=== PATIENT | female | born 1960 ===

== ENCOUNTER 2021-04-18 10:21 | Outpatient (REF) | payer OTHER, SELFPAY ==
[2021-04-18 14:30] LABS: Anion Gap 10 (12-20); Blood Urea Nitrogen 9 mg/dL (9-16); Calcium 9.8 mg/dL (8.4-10.2); Carbon Dioxide 31 mmol/L (22-29); Chloride 106 mmol/L (96-108); Estimated Glomerular Filt Rate > 60; Glucose Random 88 mg/dL (60-115); Potassium 4.3 mmol/L (3.3-5.1); Sodium 143 mmol/L (135-145)
[2021-04-18 14:51] LABS: TSH reflex Free T4 3.16 uIU/mL (0.32-4.0)
== END 2021-04-18 10:22 | disposition home or self-care (01) ==
LOC: HO.WFDLDS 10:21
PROVIDERS: PCP Family Medicine; Visit Provider Family Medicine
DX: Z00.00 Encounter for general adult medical examination without abnormal findings (principal); F41.9 Anxiety disorder, unspecified; F32.9 Major depressive disorder, single episode, unspecified; E03.9 Hypothyroidism, unspecified
CPT/HCPCS: 36415; 80048; 84443

== ENCOUNTER 2021-11-06 18:52 | Emergency (ER) | payer OTHER, SELFPAY ==
--- NOTE | ~2021-11-06 | XR_ITS ---
EXAMINATION: XR FOOT, RIGHT CLINICAL INFORMATION: Fall. Pain. COMPARISON: None TECHNIQUE: 2 views of the right foot. FINDINGS: The bones and soft tissues are normal. No fracture. Alignment is anatomic. Joint spaces are maintained. Small plantar calcaneal spur. XR/XR foot RT 2V IMPRESSION: No acute abnormality of the foot.
--- NOTE | ~2021-11-06 | XR_ITS ---
EXAMINATION: XR KNEE, RIGHT CLINICAL INFORMATION: Right knee pain. Fall. COMPARISON: None TECHNIQUE: Four views of the right knee. FINDINGS: There is mild loss of lateral and patellofemoral compartment joint space with moderate suprapatellar joint effusion. There is subtle lucency along the lateral proximal tibia extending to the lateral tibial plateau suggestive of a nondisplaced fracture. The soft tissues are mildly prominent. XR/XR knee RT 4V IMPRESSION: Nondisplaced lateral proximal tibial fracture with extension to the tibial plateau. Moderate suprapatellar joint effusion.
[2021-11-06 19:15] VITALS: BP 129/82; PULSE 81; RESP 18; TEMP 36.2; O2SAT 98; BMI 32.9
[2021-11-06] MEDS: HYDROmorphone HCl 2 MG/ML VIAL IM (22:10)
[2021-11-06] MEDS: Ondansetron ODT 4 MG TAB.RAPDIS TRANSLINGU (22:10)
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
[2021-11-06 22:33] VITALS: BP 159/82; PULSE 71; RESP 16; TEMP 37.1; O2SAT 97
== END 2021-11-06 22:47 | disposition home or self-care (01) ==
PROVIDERS: Emergency Provider Emergency Medicine; PCP Family Medicine
DX: S82.144A Nondisplaced bicondylar fracture of right tibia, initial encounter for closed fracture (principal); V18.0XXA Pedal cycle driver injured in noncollision transport accident in nontraffic accident, initial encounter; Y93.55 Activity, bike riding; Y92.414 Local residential or business street as the place of occurrence of the external cause; Y99.8 Other external cause status
CPT/HCPCS: 73564; 73620; 96372; 99283; 99284; J1170

== ENCOUNTER → 2021-11-09 09:24 | Outpatient (BNVA) | payer OTHER, SELFPAY | PROVIDERS: PCP Family Medicine; Visit Provider Physician Assistant | DX: Z13.89 Encounter for screening for other disorder (principal) ==

== ENCOUNTER 2021-11-10 08:51 | Outpatient (REF) | payer OTHER, SELFPAY ==
--- NOTE | ~2021-11-10 | CT_ITS ---
EXAMINATION: CT KNEE WITHOUT CONTRAST, RIGHT CLINICAL INFORMATION: Proximal tibial fracture. COMPARISON: Right knee radiographs dated 11/06/2021. TECHNIQUE: Contiguous axial CT images of the right knee were obtained without contrast. Sagittal and coronal reformats were provided and reviewed. This CT examination was performed using dose optimization techniques as appropriate, variously including the following: *Automated exposure control *Adjustment of mA and/or kV according to patient size (this includes techniques or standardized protocols for targeted exams where dose is matched to indication/reason for exam; i.e. extremities or head) *Use of iterative reconstruction technique DLP: 163 mGy-cm FINDINGS: There is a comminuted lateral tibial plateau fracture with a dominant oblique fracture line anteriorly which contacts the anterior and lateral cortical surface. Additionally, there is a comminuted, depressed articular surface component to the fracture measuring up to 2.6 cm in AP dimension and 2.5 cm in ML dimension with approximately 0.5 cm of cortical depression. Findings are consistent with a type II tibial plateau fracture as per Schatzker's classification system. No additional fracture. No dislocation. No joint space narrowing or marginal osteophytes. No concerning lytic or blastic osseous lesion. Small lipohemarthrosis. No abnormal soft tissue mass or fluid collection. The visualized muscles and tendons are grossly intact, however, evaluation is limited on CT examination. CT/CT knee RT wo con IMPRESSION: Mildly comminuted and depressed fracture through the lateral tibial plateau with a dominant oblique component contacting the anterior and lateral cortical surface as well as an articular surface component which demonstrates 0.5 cm of cortical depression. Findings are consistent with a type II tibial plateau fracture as per Schatzker's classification system. Small lipohemarthrosis.
== END 2021-11-10 08:52 | disposition home or self-care (01) ==
LOC: HO.CT 08:51
PROVIDERS: PCP Family Medicine; Visit Provider Physician Assistant
DX: S82.143A Displaced bicondylar fracture of unspecified tibia, initial encounter for closed fracture (principal)
CPT/HCPCS: 73700

== ENCOUNTER → 2021-11-14 15:15 | Outpatient (BNVA) | payer OTHER, SELFPAY | PROVIDERS: PCP Family Medicine; Visit Provider Physician Assistant | DX: Z13.89 Encounter for screening for other disorder (principal) ==

== ENCOUNTER 2021-11-15 09:57 | Inpatient (IN) | payer OTHER, SELFPAY ==
[2021-11-15] VITALS (18 sets, daily range): BP systolic 121–165; BP diastolic 65–90; PULSE 55–91; RESP 16–20; TEMP 36.2–36.8; O2SAT 95–98; BMI 34.0
--- NOTE | ~2021-11-15 | FL_ITS ---
EXAMINATION: XR FLUOROSCOPY WITH IMAGES CLINICAL INFORMATION: Tibial plateau fracture, postop. COMPARISON: Radiographs right knee 11/06/2021, CT right knee 11/10/2021 TECHNIQUE: Fluoroscopy performed by Dr. Marc Velazquez. Fluoroscopy time: 1 minute. DAP: 0.122 mGycm2 Images: 2 FINDINGS: Lateral tibial plateau fracture is reduced with lateral plate and multiple screws. There may be cement in the lateral tibial plateau on the AP view for additional support. Fracture fragments are in near-anatomic alignment. Hardware is intact. No destructive process. FL/FL guidance in OR IMPRESSION: Status post reduction lateral tibial plateau fracture in near-anatomic alignment. Hardware intact.
[2021-11-15] MEDS: ceFAZolin Sodium/Dextrose,Iso 2 GM/50 ML PIGGYBACK IV ×2 (06:44→19:05)
--- NOTE | 2021-11-15 07:23 | HO.ANESPROP2 ---
HPI - Anesthesia Eval Consult details Narrative: 61 F for tibial orif , right PMFSH Active Problems Active Problems: All Active Problems (Updated 11/09/21 @ 10:00 by Christy Blel) Fracture of right tibial plateau (Acute) Past Medical History Medical History Anxiety and depression Heartburn Hypothyroidism (acquired) Family History Family history of problems with anesthesia: No Surgical History History of Problems with Anesthesia: No Social History Social History Household Members: Family Housing: House Do you presently have visiting nurse or other home services: No Patient Tobacco Use Status: Former Tobacco user Quit Date: 1996 e-Cigarette/Vaping Use: Never Used Use of substances other than those prescribed or required for medical reasons: No Are you DNR?: No Advance Directives: No Advance Directives Information Provided: Yes Do you have thoughts of harming others: None Do you have a plan to hurt others: No Plan Recently lost weight without trying: No service: No Current occupational status: employed Meds Allergies Allergy/AdvReac Type Severity Reaction Status Date / Time Antihistamine Allergy Severe severe Uncoded 11/09/21 09:41 palpitations Home Medications Medication Instructions Recorded Confirmed Last Taken Type oxycodone 5 mg tablet 5 mg PO Q6H 11/15/21 11/15/21 11/14/21 History Exam Exam Date and Time: November 15, 2021 0723 Height,Weight and Vital Signs: Height 5 ft 1 in Weight 81.647 kg Last Vital Signs Temp 97.5 F 11/15/21 06:27 Pulse 55 11/15/21 06:27 Resp 16 11/15/21 06:27 BP 143/74 H 11/15/21 06:27 Pulse Ox 96 11/15/21 06:27 Airway Mallampati Class: III TM Dist: >3cm Neck ROM: Full Loose/Missing/Broken Teeth: Yes (Implant , poor dentition ) Heart: S1, S2 Lungs: b/l breath sounds Assessment and Plan Assessment Anesthesia Assessment: Anesthesia Plan Discussed and Chart Reviewed Final Anesthetic Review Family History of Problems with Anesthesia: No History of Problems with Anesthesia: No NPO: Yes ASA Class: II Final Preanesthetic Review: Meds/Allgs Chart Reviewed, Consent Obtained/Reviewed and Anes Risks/Benef Reviewed Patient Risk: Intermediate Procedure Risk: Intermediate Anesthetic Plan Anesthetic Plan: GA Disposition: Inp. Admit - Standard Bed
--- NOTE | 2021-11-15 07:47 | MHC.SHP ---
Pre-Procedural Eval Section A Date of Service: 11/15/21 The patient is an INPATIENT: No Changes since office visit: Yes Patient answered all questions; No Cold of Flu in the past 2 weeks, No New Medical Problems and No Changes in Medication The History & Physical has been completed within 30 days and I have reviewed it.: Yes Section B Chief Complaint: Displaced bicondylar fracture of right tibia, Allergies: Allergies Allergy/AdvReac Type Severity Reaction Status Date / Time Antihistamine Allergy Severe severe Uncoded 11/09/21 09:41 palpitations Plan I have reviewed the history and physical and performed a pertinent physical examination on my patient. No changes have occurred unless specified.
--- NOTE | 2021-11-15 10:01 | PM.OP ---
Brief Operative Note Date of Service: 11/15/21 Pre-op diagnosis: Right tibial plateau fracture Post-op diagnosis: same Procedure: ORIF right tibial plateau fracture Implants: Jabari tibial plateua locking plate Surgeon: Marc Velazquez MD Anesthesia: GETA and local Was an Counseling Case Manager used for this Procedure?: Yes Counseling Case Manager: Michelle Finnegan Estimated blood loss (mL): 75 IV fluids (mL): 1,100 Pathology: none sent Condition: stable Disposition: PACU
--- NOTE | 2021-11-15 10:24 | W.PM.OPN ---
Operative Note Operative Note Date of Service: 11/15/21 Narrative: Date of Service:?11/15/21 Pre-op diagnosis: Right tibial plateau fracture Post-op diagnosis:?same Procedure: ORIF right tibial plateau fracture Implants: Jabari tibial plateua locking plate Surgeon: Marc Velazquez MD Anesthesia:?GETA and local Was an Business Liaison Manager used for this Procedure?:?Yes Business Liaison Manager:?Michelle Finnegan Estimated blood loss (mL):?75 IV fluids (mL):?1,100 Pathology:?none sent Condition:?stable Disposition:?PACU Procedure in detail: Patient was brought to the operating room and placed supine on the surgical table. She was prepped and draped in standard sterile fashion and a time out was called to identify proper site, proper procedure and IV antibiotics per weight were administered. A began by making an S shaped incision over the lateral joint line and. The iliotibial band and Gerdy's tubercle were identified. A fascial incision was made in line with the skin incision and a periosteal elevator was used to elevate the IT band off of Gerdy's tubercle. I then split the anterior compartment musculature down to the anterolateral aspect of the tibial shaft. Proximally I incised the coronal ligaments and elevated the lateral meniscus proximally using FiberWire retraction sutures. I examined the joint. There was a split depression of the anterolateral tibial plateau. Loose tissue was debrided from this and cortical with window was made in the tibial shaft. A tamp was placed through the cortical window and the joint line was elevated under both direct visualization and radiographic visualization. Once I was satisfied that the joint line had been elevated a small sarmad incision was made over the medial tibial plateau and a C-clamp was placed to reduce the split fracture. Once I was satisfied with the joint alignment I placed 5 mm of HydroSet through the cortical window tamping up the articular surface. Once the Hydrocet was dry the cortical piece was replaced and I turned my attention to application of the tibial plateau hardware. A 2 distal hole lateral locking plate was applied over the lateral tibial plateau. Direct visualization was used to align the plate as well as radiographic visualization. Once I was satisfied with the position of the plate 3 locking screws were placed just distal to the articular surface from lateral to medial. An additional 4th locking screw was placed under these and then a locking raft screw was placed. I then placed 2 nonlocking screws through the distal plate. Biplanar radiographs were used to confirm plate position and fracture reduction. I was satisfied with both of these. All instrumentation was then removed. I then repaired the coronal ligaments and the lateral meniscus. The iliotibial band was closed with 0 Vicryl and subcuticular layer was closed with 2-0 Vicryl. [place] were used for the skin. I injected 30 mL of 0.25% Marcaine. Patient was placed in sterile dressing and a hinged knee brace. She was extubated brought to recovery room stable condition. There were no known complications.
[2021-11-15] MEDS: fentaNYL citrate/PF 100 MCG/2 ML VIAL 25 MCG IVPUSH ×2 (11:25→11:40)
[2021-11-15] MEDS: oxyCODONE HCl Immed Release 5 MG TABLET PO (11:31)
[2021-11-15] MEDS: HYDROmorphone HCl 0.5 MG/0.5 ML SYRINGE 0.25 MG IVPUSH (11:50)
--- NOTE | 2021-11-15 12:11 | PHA.MEDREC ---
Pharmacy Consult ? Medication Reconciliation Pharmacy has completed the medication reconciliation. Patient reports taking oxycodone 5 mg Q6H around the clock instead of PRN Tigist Choi, TrumanD
[2021-11-15] MEDS: HYDROmorphone HCl 1 MG/ML SYRINGE 0.25 MG IVPUSH ×3 (13:14→22:21)
[2021-11-15] MEDS: Enoxaparin Sodium 40 MG/0.4 ML SYRINGE SUBCUT (13:15)
[2021-11-15] MEDS: Lactated Ringers 1,000 ML 100 ML IVCONT ×2 (13:38→21:27)
[2021-11-15] MEDS: oxyCODONE HCl Immed Release 5 MG TABLET 10 MG PO ×2 (16:11→20:37)
[2021-11-15] MEDS: ondansetron HCL 4 MG/2 ML VIAL IVPUSH (19:05)
[2021-11-15] MEDS: oxyCODONE HCl ER 10 MG TAB.ER.12H PO (20:36)
[2021-11-15] MEDS: Celecoxib 200 MG CAPSULE PO (20:38)
[2021-11-15] MEDS: Acetaminophen 325 MG TABLET 650 MG PO (20:38)
[2021-11-15] MEDS: Docusate Sodium 100 MG CAPSULE PO (21:32)
[2021-11-15] MEDS: 0.9 % Sodium Chloride Flush 3 ML SYRINGE IVFLUSH (23:45)
[2021-11-16] MEDS: HYDROmorphone HCl 1 MG/ML SYRINGE 0.25 MG IVPUSH ×3 (03:32→12:47)
[2021-11-16 03:45] VITALS: BP 127/66; PULSE 77; RESP 18; TEMP 36.4; O2SAT 97
[2021-11-16] MEDS: Lactated Ringers 1,000 ML 100 ML IVCONT (06:15)
[2021-11-16 06:26] LABS: MANUAL DIFF FLAG NO
[2021-11-16 06:29] LABS: Basophils Percent Auto 0.1 % (0-2); Eosinophils Percent Auto 0.1 % (0-4); Hematocrit 33.7 % (37.0-47.0); Imm Gran Abs Auto 0.05 X10*3/uL (0.00-0.03); Imm Gran Pct Auto 0.4 % (0.0-0.4); Lymphocytes Absolute Auto 1.4 X10*3/uL (1.2-4.9); Mean Corpuscular HGB Conc 32.6 g/dl (31.0-35.0); Mean Corpuscular Hemoglobin 29.3 pg (27.0-33.0); Mean Corpuscular Volume 89.6 fL (80.0-98.0); Mean Platelet Volume 9.4 fL (9.4-12.3); Neutrophils Absolute Auto 9.5 x10*3/uL (2.0-8.3); Neutrophils Percent Auto 79.4 % (45-73); Platelet Count 224 X10*3/uL (160-400); Red Blood Count 3.76 X10*6/uL (4.20-5.50); Red Cell Distribution Width 12.5 % (11.0-16.0); White Blood Count 11.9 X10*3/uL (4.8-10.8)
[2021-11-16 06:52] LABS: Anion Gap 13 (12-20); Blood Urea Nitrogen 8 mg/dL (9-16); Carbon Dioxide 28 mmol/L (22-29); Chloride 105 mmol/L (96-108); Creatinine Clr Calc Pharmacy 80.7; Estimated Glomerular Filt Rate > 60; Glucose Fasting 110 mg/dL (60-99); Potassium 4.5 mmol/L (3.3-5.1); Sodium 141 mmol/L (135-145)
--- NOTE | 2021-11-16 07:03 | HO.POSTANES ---
Post Anesthesia Evaluation Post Anesthesia Evaluation Vital Signs: Vital Signs Temp Pulse Resp BP Pulse Ox 11/16/21 03:45 97.5 F 77 18 127/66 97 11/15/21 23:20 98.3 F 73 18 139/72 97 11/15/21 22:23 66 20 122/69 11/15/21 20:26 98.0 F 73 18 143/73 H 95 11/15/21 20:00 98.0 F 73 18 143/73 H 95 Anesthesia: General Mental Status: Awake Pain Control: Satisfactory (pain 7/10) Nausea/Vomiting: Mild Hydration: Adequate Anesthesia-Related Issues: No Anes. Related Issues
[2021-11-16 08:00] VITALS: BP 136/80; PULSE 70; RESP 17; TEMP 36.7; O2SAT 96
[2021-11-16] MEDS: 0.9 % Sodium Chloride Flush 3 ML SYRINGE IVFLUSH (08:35)
[2021-11-16] MEDS: Docusate Sodium 100 MG CAPSULE PO (08:35)
[2021-11-16] MEDS: oxyCODONE HCl ER 10 MG TAB.ER.12H PO (08:35)
[2021-11-16] MEDS: Celecoxib 200 MG CAPSULE PO (08:36)
--- NOTE | 2021-11-16 08:59 | P.DS_ITS ---
DS: Providers Provider Date of Service: 11/16/21 Date of admission: 11/15/21 09:57 Primary care physician: Ceasar Odell MD DS: Summary Hospital Course Hospital Course: The patient underwent a successful ORIF of the right tibal plateau, was transferred to PACU and then to the floor to recover. During their stay, their vitals were stable, afebrile at 98.0. Labs were unremarkable, H/H 11.0/33.7. POD 1 shewas started on lovenox for DVT ppx, they also received services twice a day. The plan was to be d/c home with out patient PT Time Spent with Patient Time attestation: Total time spent providing and/or coordinating discharge services: Discharge coordination time: Less than 30 minutes Quality: Safe Use of Opioids Does Pt have an Active Cancer Diagnosis on the Problem List?: No Quality: Stroke Does the patient have a stroke diagnosis?: No Physical Exam Vital Signs: Vital Signs: Last Vital Signs Temp 98.0 F 11/16/21 08:00 Pulse 70 11/16/21 08:00 Resp 17 11/16/21 08:00 BP 136/80 11/16/21 08:00 Pulse Ox 96 11/16/21 08:00 BMI result Body Mass Index 34.0 Const: General: cooperative, healthy appearing and no acute distress Resp: Effort & Inspection: normal respiratory effort and able to speak in complete sentences Cardio: Rate: regular rate Peripheral pulses: Peripheral pulses 2+ throughout GI: Palpation (GI): Soft to palpation Skin: General skin exam: no rashes or lesions noted Extrem: Other: incision clean dry and intact. Lexi intact. No erythema or joint effusion. Calf supple nontender. Neurovascularly intact. DS: Data Data Completed and Pending Labs on day of discharge: Laboratory Results - last 24 hr 11/16/21 11/16/21 05:38 05:38 WBC 11.9 H RBC 3.76 L Hgb 11.0 L Hct 33.7 L MCV 89.6 MCH 29.3 MCHC 32.6 RDW 12.5 Plt Count 224 MPV 9.4 Immature Gran % (Auto) 0.4 Neut % (Auto) 79.4 H Lymph % (Auto) 12.0 L Harrison % (Auto) 8.0 Eos % (Auto) 0.1 Baso % (Auto) 0.1 Lymph # (Auto) 1.4 Harrison # (Auto) 1.0 Eos # (Auto) 0.0 Baso # (Auto) 0.0 Abs Immat Gran (auto) 0.05 H Absolute Neuts (auto) 9.5 H Absolute Nucleated RBC 0.000 Nucleated RBC % (auto) 0.0 Sodium 141 Potassium 4.5 Chloride 105 Carbon Dioxide 28 Anion Gap 13 BUN 8 L Creatinine 0.70 Estim Creat Clear Calc 80.7 Estimated GFR > 60 Fasting Glucose 110 H Calcium 9.0 D Discharge Plan Discharge Patient Disposition: Home, Self-Care Discharge Diagnosis: s/p ORIF right tibal plateau Referrals: Michelle Finnegan PA-C [Physician Geothermal Powerplant Supervisor] - 2 Weeks (11/27/21 08:30 [facility] Michelle Finnegan PA-C) Discharge Medications: New docusate sodium 100 mg Capsule 100 mg PO BID 14 Days Qty: 28 0RF oxycodone 10 mg tablet 10 mg PO Q4H PRN (Reason: Pain, Moderate (Pain Scale 4-6) 7 Days Qty: 42 0RF acetaminophen 325 mg Tablet 650 mg PO Q6H PRN (Reason: Pain, Mild (Pain Scale 1-3)) 30 Days Qty: 240 0RF enoxaparin 40 mg/0.4 mL Syringe 40 mg subcut Q24H 42 Days Qty: 16.8 0RF ondansetron HCl 4 mg tablet 4 mg PO Q6-8H PRN (Reason: nausea and vomiting) 14 Days Qty: 56 0RF Continued citalopram 40 mg tablet 40 mg PO DAILY Qty: 90 2RF levothyroxine 75 mcg tablet 75 mcg PO QAM Qty: 90 2RF (DME) walker [facility] [place] See Rx Instructions .ROUTE .MEDSUPPLY Qty: 1 0RF Rx Instructions: Folding front wheeled walker Discontinued oxycodone 5 mg tablet 5 mg PO Q6H 0RF Rx Instructions: Partial fill okay Discharge Orders: Discharge Order (Routine); Ordered 11/16/21 Ordered By: Richard Mueller Diet: regular diet Activity on Discharge: Use cane or walker Stand Alone Forms: Patient Portal Discharge page Care Plan Goals: Restore function of joint Health Concerns: none Plan of Treatment: Physical Therapy Pain management DVT prophylaxis Assessment: * NWB x6 weeks * NWB ROM as tolerated * Knee immobilizer intact on at all times when walking-may remove with NWB ROM exercises * Keep dressing clean , dry and intact. * Continue anticoagulant-lovenox once a day x 6 weeks * Follow up with orthopedics in 2 weeks * * Physical Therapy to begin next week * Arabella SCHROEDER on 11/24 at 10am. Patient Instructions: Enoxaparin (By injection) Discharge Date/Time: 11/16/21 14:18
[2021-11-16 10:50] VITALS: BP 136/80; PULSE 70; O2SAT 96
--- NOTE | 2021-11-16 11:05 | MHC.CM.PN ---
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
[2021-11-16] MEDS: oxyCODONE HCl Immed Release 5 MG TABLET 10 MG PO (11:46)
[2021-11-16] MEDS: Enoxaparin Sodium 40 MG/0.4 ML SYRINGE SUBCUT (11:47)
== END 2021-11-16 14:18 | disposition home or self-care (01) | DRG 494 ==
LOC: HO.SSSA 10:11 → HO.S3 11:48
PROVIDERS: Physician Assistant; Admitting Provider Orthopaedic Surgery; PCP Family Medicine; Visit Provider Orthopaedic Surgery
PROC: 0QSG04Z Reposition Right Tibia with Internal Fixation Device, Open Approach (ICD-10-PCS; principal; 2021-11-15 07:30)
DX: S82.141A Displaced bicondylar fracture of right tibia, initial encounter for closed fracture (principal); V18.0XXA Pedal cycle driver injured in noncollision transport accident in nontraffic accident, initial encounter; Z87.891 Personal history of nicotine dependence; Z88.8 Allergy status to other drugs, medicaments and biological substances; Z79.890 Hormone replacement therapy; Z79.899 Other long term (current) drug therapy
CPT/HCPCS: 36415; 80048; 85025; 97116; 97161; 97165; C1713; J0690; J1100; J1170; J1650; J2250; J2405; J3010

== ENCOUNTER 2021-11-30 07:15 | Outpatient (REF) | payer OTHER, SELFPAY ==
--- NOTE | ~2021-11-30 | XR_ITS ---
EXAMINATION: XR KNEE, RIGHT CLINICAL INFORMATION: Pain in unspecified knee. COMPARISON: Right knee done on 11/06/2021 and fluoroscopic assistance provided at the time of ORIF done on 11/15/2021. TECHNIQUE: Two views of the right knee. FINDINGS: Postsurgical changes of ORIF is noted at the site of the prior fracture involving the lateral tibial plateau showing intact hardware and satisfactory alignment. No new abnormalities. XR/XR knee RT 2V IMPRESSION: Postoperative changes of ORIF at the site of prior fracture involving the lateral tibial plateau showing intact hardware and satisfactory alignment.
== END 2021-11-30 07:16 | disposition home or self-care (01) ==
LOC: HO.HOSX 07:15
PROVIDERS: Visit Provider Physician Assistant
DX: M25.569 Pain in unspecified knee (principal)
CPT/HCPCS: 73560

== ENCOUNTER 2021-12-06 09:58 | Outpatient (REF) | payer OTHER, SELFPAY ==
[2021-12-06 11:02] LABS: Alanine Aminotransferase 33 U/L (0-31); Albumin Level 4.5 g/dL (3.5-5.0); Alkaline Phosphatase 128 U/L (39-117); Anion Gap 12 (12-20); Aspartate Amino Transferase 27 U/L (5-31); Bilirubin Total 0.6 mg/dL (0.0-1.0); Blood Urea Nitrogen 6 mg/dL (9-16); Calcium 9.7 mg/dL (8.4-10.2); Carbon Dioxide 29 mmol/L (22-29); Chloride 104 mmol/L (96-108); Estimated Glomerular Filt Rate > 60; Glucose Random 105 mg/dL (60-115); Potassium 3.6 mmol/L (3.3-5.1); Sodium 141 mmol/L (135-145); Total Protein 7.4 g/dL (6.5-8.0)
[2021-12-06 11:25] LABS: TSH reflex Free T4 1.78 uIU/mL (0.32-4.0)
== END 2021-12-06 09:59 | disposition home or self-care (01) ==
LOC: HO.WFDLDS 09:58
PROVIDERS: Visit Provider Family Medicine
DX: Z00.00 Encounter for general adult medical examination without abnormal findings (principal); F41.9 Anxiety disorder, unspecified; R11.0 Nausea; R63.0 Anorexia; F32.9 Major depressive disorder, single episode, unspecified
CPT/HCPCS: 36415; 80053; 84443

== ENCOUNTER 2022-01-01 12:19 | Outpatient (REF) | payer OTHER, SELFPAY ==
--- NOTE | ~2022-01-01 | XR_ITS ---
EXAMINATION: XR KNEE, RIGHT CLINICAL INFORMATION: Pain. COMPARISON: 11/30/2021. 11/06/2021. TECHNIQUE: Two views of the right knee. FINDINGS: Fixation plate overlying the lateral proximal tibia with multiple traversing screws. No evidence of hardware failure. A lateral tibial plateau fracture demonstrates interval osseous bridging when compared to October and it is in near-anatomic alignment. No new injuries. No joint effusion. XR/XR knee RT 2V IMPRESSION: Intact tibial hardware fixating a healing tibial plateau fracture in near-anatomic alignment.
== END 2022-01-01 12:20 | disposition home or self-care (01) ==
LOC: HO.HOSX 12:19
PROVIDERS: Visit Provider Physician Assistant
DX: M25.561 Pain in right knee (principal)
CPT/HCPCS: 73560

== ENCOUNTER 2022-02-01 09:01 | Outpatient (REF) | payer OTHER, SELFPAY ==
[2022-02-01 11:26] LABS: MANUAL DIFF FLAG NO
[2022-02-01 11:28] LABS: Basophils Absolute Auto 0.1 X10*3/uL (0.0-0.2); Basophils Percent Auto 0.8 % (0-2); Eosinophils Absolute Auto 0.3 X10*3/uL (0.0-0.4); Eosinophils Percent Auto 4.4 % (0-4); Hematocrit 42.5 % (37.0-47.0); Hemoglobin 13.7 g/dl (12.0-16.0); Imm Gran Abs Auto 0.02 X10*3/uL (0.00-0.03); Imm Gran Pct Auto 0.3 % (0.0-0.4); Immature Retic Fraction 8.5 % (3.0-15.9); Lymphocytes Absolute Auto 1.8 X10*3/uL (1.2-4.9); Lymphocytes Percent Auto 23.9 % (20-40); Mean Corpuscular HGB Conc 32.2 g/dl (31.0-35.0); Mean Corpuscular Hemoglobin 28.8 pg (27.0-33.0); Mean Corpuscular Volume 89.5 fL (80.0-98.0); Mean Platelet Volume 9.3 fL (9.4-12.3); Monocytes Absolute Auto 0.5 X10*3/uL (0.1-1.2); Monocytes Percent Auto 7.2 % (2-11); Neutrophils Absolute Auto 4.8 x10*3/uL (2.0-8.3); Neutrophils Percent Auto 63.4 % (45-73); Platelet Count 284 X10*3/uL (160-400); Red Blood Count 4.75 X10*6/uL (4.20-5.50); Retic HGB Equivalent 33.3 pg (30.0-35.0); Reticulocyte Percent 1.4 % (0.5-1.8); Reticulocytes Absolute 0.068 X10*6/uL (0.026-0.095); White Blood Count 7.5 X10*3/uL (4.8-10.8)
[2022-02-01 11:45] LABS: Alanine Aminotransferase 22 U/L (0-31); Albumin Level 4.5 g/dL (3.5-5.0); Alkaline Phosphatase 117 U/L (39-117); Anion Gap 14 (12-20); Aspartate Amino Transferase 20 U/L (5-31); Bilirubin Total 0.4 mg/dL (0.0-1.0); Blood Urea Nitrogen 11 mg/dL (9-16); Carbon Dioxide 31 mmol/L (22-29); Chloride 102 mmol/L (96-108); Cholesterol 227 mg/dL; Estimated Glomerular Filt Rate > 60; Glucose Fasting 96 mg/dL (60-99); HDL Cholesterol 43 mg/dL; Iron 82 mcg/dL (30-160); LDL Cholesterol Calculated 152 mg/dl; Percent Iron Saturation 25 % (15-50); Potassium 4.4 mmol/L (3.3-5.1); Sodium 143 mmol/L (135-145); Total Iron Binding Capacity 332 mcg/dL (228-428); Total Protein 7.5 g/dL (6.5-8.0); Triglycerides 163 mg/dL; Unsaturated Iron Binding 250 ug/dL
[2022-02-01 12:09] LABS: Ferritin 137 ng/mL (10-250); TSH reflex Free T4 3.82 uIU/mL (0.32-4.0)
[2022-02-01 12:52] LABS: Folate 14.7 ng/mL (> or = 4.0); Vitamin B12 657 pg/mL (200-900)
== END 2022-02-01 09:02 | disposition home or self-care (01) ==
LOC: HO.HMGCLDS 09:01
PROVIDERS: PCP Family Medicine; Visit Provider Family Medicine
DX: Z00.00 Encounter for general adult medical examination without abnormal findings (principal); D64.9 Anemia, unspecified; E53.8 Deficiency of other specified B group vitamins; Z13.220 Encounter for screening for lipoid disorders; Z13.29 Encounter for screening for other suspected endocrine disorder
CPT/HCPCS: 36415; 80053; 80061; 82607; 82728; 82746; 83540; 84443; 85025; 85045

== ENCOUNTER 2022-02-15 15:10 | Outpatient (REF) | payer OTHER, SELFPAY ==
--- NOTE | ~2022-02-15 | XR_ITS ---
EXAMINATION: KNEE X-RAY CLINICAL INFORMATION: Pain COMPARISON: Previous x-rays most recent December 2021 TECHNIQUE: Standing AP view of both knees and lateral and sunrise view of the right knee FINDINGS: Right: There is a plate and screws transfixing the lateral tibial plateau fracture. Orthopedic hardware appears unchanged. Alignment is anatomic. The bones are osteopenic. The joint spaces are normal. There is a small right knee joint effusion. Standing AP view of the left knee is unremarkable. XR/XR knee standing BI IMPRESSION: ORIF of right lateral tibial plateau fracture.
--- NOTE | ~2022-02-15 | XR_ITS ---
EXAMINATION: KNEE X-RAY CLINICAL INFORMATION: Pain COMPARISON: Previous x-rays most recent December 2021 TECHNIQUE: Standing AP view of both knees and lateral and sunrise view of the right knee FINDINGS: Right: There is a plate and screws transfixing the lateral tibial plateau fracture. Orthopedic hardware appears unchanged. Alignment is anatomic. The bones are osteopenic. The joint spaces are normal. There is a small right knee joint effusion. Standing AP view of the left knee is unremarkable. XR/XR knee RT 2V IMPRESSION: ORIF of right lateral tibial plateau fracture.
== END 2022-02-15 15:11 | disposition home or self-care (01) ==
LOC: HO.HOSX 15:10
PROVIDERS: Visit Provider Physician Assistant
DX: M25.561 Pain in right knee (principal)
CPT/HCPCS: 73560; 73565

== ENCOUNTER 2022-04-05 | Outpatient (REF) | payer OTHER, SELFPAY ==
--- NOTE | ~2022-04-05 | XR_ITS ---
EXAMINATION: XR BILATERAL KNEE AP STANDING. LATERAL AND SUNRISE VIEWS OF THE RIGHT KNEE. CLINICAL INFORMATION: Pain in unspecified knee COMPARISON: 02/15/2022 TECHNIQUE: AP bilateral standing view of both knees, lateral view of the right knee, and sunrise view of the right knee were obtained. FINDINGS: Right knee: Lateral side plate and screw fixation of previously seen lateral tibial plateau fracture. No offset of the articular surface seen. Mild medial and lateral compartment joint space narrowing. Small suprapatellar joint effusion. Normal patellar alignment. Left knee: Mild medial compartment joint space narrowing. Lateral compartment joint space maintained. No fracture or dislocation. XR/XR knee standing BI IMPRESSION: Status post ORIF right lateral tibial plateau fracture. Alignment is unchanged. Small suprapatellar joint effusion persists.
--- NOTE | ~2022-04-05 | XR_ITS ---
EXAMINATION: XR BILATERAL KNEE AP STANDING. LATERAL AND SUNRISE VIEWS OF THE RIGHT KNEE. CLINICAL INFORMATION: Pain in unspecified knee COMPARISON: 02/15/2022 TECHNIQUE: AP bilateral standing view of both knees, lateral view of the right knee, and sunrise view of the right knee were obtained. FINDINGS: Right knee: Lateral side plate and screw fixation of previously seen lateral tibial plateau fracture. No offset of the articular surface seen. Mild medial and lateral compartment joint space narrowing. Small suprapatellar joint effusion. Normal patellar alignment. Left knee: Mild medial compartment joint space narrowing. Lateral compartment joint space maintained. No fracture or dislocation. XR/XR knee RT 2V IMPRESSION: Status post ORIF right lateral tibial plateau fracture. Alignment is unchanged. Small suprapatellar joint effusion persists.
== END 2022-04-05 00:01 | disposition home or self-care (01) ==
LOC: HO.HOSX
PROVIDERS: Visit Provider Physician Assistant
DX: M25.569 Pain in unspecified knee (principal); M25.461 Effusion, right knee
CPT/HCPCS: 73560; 73565

== ENCOUNTER 2022-05-02 15:00 | Outpatient (RCR) | payer OTHER, SELFPAY ==
[2021-11-24 10:07] VITALS: BP 152/82; PULSE 74; O2SAT 97
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
--- NOTE | 2022-08-02 08:48 | MHC.PT.DC ---
[facility] [place] Office [place] Office [place] Office [address] Bab[place]unde [place] [address] [phone] F: [phone] F: [phone] F: [phone] F: [phone] Physical Therapy Discharge Report Diagnosis: This is a 61 yo female presenting to skilled PT with a script for s/p fx of R tibial plateau ORIF Date of Surgery: 11/15/21 Date of Evaluation: 11/24/21 Date of Discharge: 08/02/22 Treatments to Date: Cancellations to Date: 0 No Shows to Date: Discharge Status: Achieved Goals Improved Function Independent with HEP Discharge Summary: Pt amb with good technique swing through pattern with no assistive device needed. Pt needed v/c to increase push off and decrease R hip ext rot. Pt patella mobility WNL. HS 90 degrees. Knee flexion 8 degrees less than L. Pt is Dc with HEP, is I with her program and ready for transition to self management at this time. Electronically signed by: Imelda Stevens PT Please sign and return to therapist. Thank you for your referral.
== END 2022-08-02 08:48 | disposition home or self-care (01) ==
LOC: HO.PTCHIC 15:00
PROVIDERS: PCP Family Medicine; Visit Provider Orthopaedic Surgery
DX: S82.141A Displaced bicondylar fracture of right tibia, initial encounter for closed fracture (principal)
CPT/HCPCS: 97110; 97116; 97140; 97162; 97530

== ENCOUNTER 2022-09-03 08:27 | Outpatient (REF) | payer OTHER, SELFPAY ==
[2022-09-03 12:37] LABS: Alanine Aminotransferase 20 U/L (0-31); Albumin Level 4.1 g/dL (3.5-5.0); Alkaline Phosphatase 122 U/L (39-117); Anion Gap 13 (12-20); Aspartate Amino Transferase 18 U/L (5-31); Bilirubin Total 0.3 mg/dL (0.0-1.0); Blood Urea Nitrogen 10 mg/dL (9-16); Calcium 9.2 mg/dL (8.4-10.2); Carbon Dioxide 28 mmol/L (22-29); Chloride 104 mmol/L (96-108); Cholesterol 172 mg/dL; Estimated Glomerular Filt Rate > 60; Glucose Fasting 111 mg/dL (60-99); HDL Cholesterol 30 mg/dL; LDL Cholesterol Calculated 97 mg/dl; Sodium 141 mmol/L (135-145); Total Protein 6.7 g/dL (6.5-8.0); Triglycerides 227 mg/dL
== END 2022-09-03 08:28 | disposition home or self-care (01) ==
LOC: HO.HMGCLDS 08:27
PROVIDERS: PCP Family Medicine; Visit Provider Family Medicine
DX: Z00.00 Encounter for general adult medical examination without abnormal findings (principal); E78.5 Hyperlipidemia, unspecified
CPT/HCPCS: 36415; 80053; 80061

== ENCOUNTER → 2022-09-19 08:57 | Outpatient (BNVA) | payer OTHER, SELFPAY | PROVIDERS: PCP Family Medicine; Visit Provider Physician Assistant | DX: Z13.89 Encounter for screening for other disorder (principal) ==

== ENCOUNTER 2023-01-04 11:52 | Outpatient (AMB) | payer OTHER, SELFPAY ==
[2023-01-04 11:53] VITALS: BP 132/78; PULSE 61; O2SAT 97; BMI 32.9
--- NOTE | 2023-01-04 11:53 | MHC.PC.OV ---
Vital Signs 01/04/23 11:53 Height 5 ft 3 in Weight 186 lb BMI 32.9 BP 132/78 Blood Pressure Location Lt brachial Position Sitting Pulse 61 Pulse Source Pulse Oximeter Pulse Oximetry (%) 97 Oxygen Delivery Method Room Air Intake Visit Reasons: f/u hypothyroidism, low HDL, elevated FBS Intake Note: Patient is here to follow up on her blood work. Allergies Antihistamine Allergy (Severe, Uncoded 01/04/23 11:57) severe palpitations Tobacco use date assessed: 01/04/23 Dental Screening Dental Screen Date: 01/04/23 Did you have a dental visit in the last 12 months?: Yes Did you have a dental problem in the last 6 months where you did not have access to dental care?: No Was dental information given to patient?: No HPI f/u hypothyroidism, low HDL, elevated FBS HPI Details 62 y/o female presents to f/u hypothyroidism, low HDL, elevated FBS Last A1c 09/07/22 was 5.5%. A1c today 01/04/23 is 5.7%. She reports she has been making dietary changes and has been frustrated her A1c had went up. She reports she has been eating cereal every day. No recent labs to reivew for her thyroid levels and low HDL. [facility] Medical History Heartburn Hypothyroidism (acquired) Surgical History History of knee surgery Social History Household Members: Family Housing: House Do you presently have visiting nurse or other home services: No Patient Tobacco Use Status: Former Tobacco user Quit Date: 1996 e-Cigarette/Vaping Use: Never Used Second Hand Smoke Exposure: No service: No Current occupational status: employed Current occupation: [employer]- Current occupational exposures/hazards: No Cognitive needs: No Hearing needs: No Vision needs: No Questionnaire Thrive Questionnaire Date Thrive assessed: 07/31/22 LYNETTE-7 AMB Questionnaire LYNETTE-7 Date LYNETTE - 7 assessed: 07/31/22 Source: Developed by Drs. Kvng Menard, Darline Yung, Les Kenney and colleagues, with an educational ivan from [employer]. Physical exam (Primary Care) Vital Signs: Last Vital Signs Pulse 61 01/04/23 11:53 BP 132/78 01/04/23 11:53 Pulse Ox 97 01/04/23 11:53 Oxygen Delivery Method Room Air 01/04/23 11:53 BMI result Body Mass Index 32.9 Tobacco/Smoking Status: Tobacco use Status Tobacco use date assessed 01/04/23 01/04/23 12:01 Patient Tobacco Use Status Former Tobacco user 01/04/23 11:56 e-Cigarette/Vaping Use Never Used 01/04/23 11:56 Thrive Assessment: Date of Thrive Assessment Date Thrive assessed 07/31/22 01/04/23 11:56 Results AMB Hemoglobin A1c AMB Hemoglobin A1c 5.7 % Last Edit by Fabiola Ruiz CMA on 01/04/23 12:20 Assessment and Plan Assessment & Plan (1) Pre-diabetes: Code(s): R73.03 - Prediabetes Plan: A1c has risen to 5.7%; pre diabetes range. Patient is frustrated because she says she has been making dietary changes. She does have some gaps in her understanding about what she should he however as she mentions she is still eating cereal every day. Will ask the nurse navigator to go over dietary and lifestyle changes for patient with elevated fasting blood sugars/diabetes. Again encouraged a diet lower in sugars and starches Encouraged weight loss Encouraged exercise (2) Family history of diabetes mellitus: Code(s): Z83.3 - Family history of diabetes mellitus Plan Had also planned to follow-up on hypothyroidism and hyperlipidemia but she has not had her labs drawn yet. She will get these drawn and we will follow-up in a couple of weeks by telemedicine Orders: Orders AMB Hemoglobin A1c Today Z13.9 - Encounter for screening, unspecified Referrals Nurse Navigator Referral R73.03 - Prediabetes, Z83.3 - Family history of diabetes mellitus Coding Level of Care Code Est Pt Level 3 (09207) Diagnoses Pre-diabetes R73.03 Family history of diabetes mellitus Z83.3
== END 2023-01-04 12:37 | disposition home or self-care (01) ==
PROVIDERS: PCP Family Medicine; Visit Provider Family Medicine
DX: R73.03 Prediabetes (principal); Z83.3 Family history of diabetes mellitus
CPT/HCPCS: 83036; 99213

== ENCOUNTER 2023-01-11 07:08 | Outpatient (REF) | payer OTHER, SELFPAY ==
[2023-01-11 12:13] LABS: Alanine Aminotransferase 25 U/L (0-31); Albumin Level 4.1 g/dL (3.5-5.0); Alkaline Phosphatase 101 U/L (39-117); Anion Gap 18 (12-20); Aspartate Amino Transferase 22 U/L (5-31); Bilirubin Total 0.3 mg/dL (0.0-1.0); Blood Urea Nitrogen 11 mg/dL (9-16); Calcium 9.8 mg/dL (8.4-10.2); Carbon Dioxide 22 mmol/L (22-29); Chloride 105 mmol/L (96-108); Cholesterol 191 mg/dL; Estimated Glomerular Filt Rate > 60; Free T4 (Free Thyroxine) 0.95 ng/dL (0.71-1.85); Glucose Fasting 106 mg/dL (60-99); HDL Cholesterol 29 mg/dL; LDL Cholesterol Calculated 111 mg/dl; Potassium 4.1 mmol/L (3.3-5.1); Sodium 141 mmol/L (135-145); Thyroid Stimulating Hormone 5.56 uIU/mL (0.32-4.0); Total Protein 7.3 g/dL (6.5-8.0); Triglycerides 259 mg/dL
[2023-01-13 08:19] LABS: Triiodothyronine T3 Total 91 ng/dL (76-181)
== END 2023-01-11 07:09 | disposition home or self-care (01) ==
LOC: HO.HMGCLDS 07:08
PROVIDERS: PCP Family Medicine; Visit Provider Family Medicine
DX: Z00.00 Encounter for general adult medical examination without abnormal findings (principal); E03.9 Hypothyroidism, unspecified; E78.5 Hyperlipidemia, unspecified
CPT/HCPCS: 36415; 80053; 80061; 84439; 84443; 84480

== ENCOUNTER 2023-01-14 08:54 | Outpatient (AMB) | payer OTHER, SELFPAY ==
--- NOTE | 2023-01-14 09:00 | MHC.OFFWIV ---
Intake Vital Signs 01/14/23 09:02 BP 120/78 Blood Pressure Location Rt brachial Position Sitting Pulse 62 Pulse Source Pulse Oximeter Temp 97.5 F Temp Source Temporal Artery Scan Pulse Oximetry (%) 95 Oxygen Delivery Method Room Air Intake Visit Reasons: EST/right knee pain Intake Note: Patient here for right knee pain. she states she broke it last summer and the other day she was knocked over by a dog and since then it has been extremely painful. Patient Tobacco Use Status: Former Tobacco user Quit Date: 1996 Allergies Antihistamine Allergy (Severe, Uncoded 01/14/23 09:36) severe palpitations Medication List - Last Reconciled 01/14/23 by Merrill Marvin MD citalopram 40 mg PO DAILY levothyroxine 75 mcg PO QAM omeprazole 20 mg PO DAILY 30 days Do you need a note to return to daycare/school/sports/work: No HPI EST/right knee pain HPI Details 62-year-old female presents to the office for a sick visit. 140 lb dog ran into her right knee 5 days ago. Patient is had a plate fracture of the right tibia in the past. She has had metal inserted to stabilize the tibia. Patient is complaining of pain and swelling in the knee area. [facility] Medical History Heartburn Hypothyroidism (acquired) Surgical History History of knee surgery Social History Household Members: Family Housing: House Do you presently have visiting nurse or other home services: No Patient Tobacco Use Status: Former Tobacco user Quit Date: 1996 e-Cigarette/Vaping Use: Never Used Second Hand Smoke Exposure: No service: No Current occupational status: employed Current occupation: [employer]- Current occupational exposures/hazards: No Cognitive needs: No Hearing needs: No Vision needs: No Physical Exam Vital Signs: Last Vital Signs Temp 97.5 F 01/14/23 09:02 Pulse 62 01/14/23 09:02 BP 120/78 01/14/23 09:02 Pulse Ox 95 01/14/23 09:02 Oxygen Delivery Method Room Air 01/14/23 09:02 Extrem Other: Right knee: Surgical scar is stable. Joint line tenderness on the lateral side of the knee. Pain on flexion. Assessment & Plan Assessment & Plan (1) Sprain of right knee: Code(s): S83.91XA - Sprain of unspecified site of right knee, initial encounter Plan: X-ray images were personally reviewed by me. Patient was advised to use a knee brace. Anti-inflammatories called in. Coding Level of Care Code Est Pt Level 4 (78504) Diagnoses Sprain of right knee S83.91XA
[2023-01-14 09:02] VITALS: BP 120/78; PULSE 62; TEMP 36.4; O2SAT 95
== END 2023-01-14 10:53 | disposition home or self-care (01) ==
PROVIDERS: PCP Family Medicine; Visit Provider Internal Medicine
DX: S83.91XA Sprain of unspecified site of right knee, initial encounter (principal)
CPT/HCPCS: 99214

== ENCOUNTER 2023-01-14 09:21 | Outpatient (REF) | payer OTHER, SELFPAY ==
--- NOTE | ~2023-01-14 | XR_ITS ---
EXAMINATION: XR KNEE, RIGHT CLINICAL INFORMATION: Sprain of right knee COMPARISON: March 2022. TECHNIQUE: Four views of the right knee. FINDINGS: There is been previous fixation of the proximal right tibia with intact hardware in position. Small double density in the right tibial plateau appears consistent with previous change of tibial plateau fracture, with stable alignment since February 2022. No new osteochondral lesions observed. Small joint effusion appears to be improved. No new focal patellar abnormality. There is no erosive process. XR/XR knee RT 4V IMPRESSION: Stable osseous alignment since February and March 2022. Post fixation of the proximal right tibia. No new fracture or dislocation. Right suprapatellar effusion appears to be improved.
== END 2023-01-14 09:22 | disposition home or self-care (01) ==
LOC: HO.HMGCX 09:21
PROVIDERS: PCP Family Medicine; Visit Provider Internal Medicine
DX: S83.91XA Sprain of unspecified site of right knee, initial encounter (principal); X58.XXXA Exposure to other specified factors, initial encounter; Y93.9 Activity, unspecified; Y92.9 Unspecified place or not applicable; Y99.9 Unspecified external cause status
CPT/HCPCS: 73564

== ENCOUNTER 2023-01-23 15:22 | Outpatient (AMB) | payer OTHER, SELFPAY ==
--- NOTE | 2023-01-23 15:15 | MHC.PC.OV ---
Intake Visit Reasons: f/u hypothyroidism, labs Intake Note: Patient is calling to follow up on her labs. Allergies Antihistamine Allergy (Severe, Uncoded 01/23/23 15:16) severe palpitations Tobacco use date assessed: 01/23/23 Dental Screening Dental Screen Date: 01/23/23 Did you have a dental visit in the last 12 months?: Yes Did you have a dental problem in the last 6 months where you did not have access to dental care?: No Was dental information given to patient?: No HPI f/u hypothyroidism, labs HPI Details 62 y/o female presents to f/u hypothyroidism and labs. Labs were drawn 01/11/23. Reviewed labs with pt. Elevated fasting glucose of 106. Last A1c 01/04/23 was 5.7% - in pre-diabetes range. Triglycerides 259. TC 191. LDL 111. HDL low at 29. TSH level 5.56. She is on levothyroxine 75 mcg daily. [facility] Medical History Heartburn Hypothyroidism (acquired) Surgical History History of knee surgery Social History Household Members: Family Housing: House Do you presently have visiting nurse or other home services: No Patient Tobacco Use Status: Former Tobacco user Quit Date: 1996 e-Cigarette/Vaping Use: Never Used Second Hand Smoke Exposure: No service: No Current occupational status: employed Current occupation: [employer]- Current occupational exposures/hazards: No Cognitive needs: No Hearing needs: No Vision needs: No Questionnaire Thrive Questionnaire Date Thrive assessed: 07/31/22 LYNETTE-7 AMB Questionnaire LYNETTE-7 Date LYNETTE - 7 assessed: 07/31/22 Source: Developed by Drs. Kvng Menard, Darline Yung, Les Kenney and colleagues, with an educational ivan from [employer]. Physical exam (Primary Care) Tobacco/Smoking Status: Tobacco use Status Tobacco use date assessed 01/23/23 01/23/23 15:19 Patient Tobacco Use Status Former Tobacco user 01/23/23 15:19 e-Cigarette/Vaping Use Never Used 01/23/23 15:19 Thrive Assessment: Date of Thrive Assessment Date Thrive assessed 07/31/22 01/23/23 15:19 Telehealth Telehealth Location of provider rendering services: practice address Location of patient: address on file Patient Identification confirmed using: Name, : Yes Telehealth method: voice only Patient verbally consented to treatment: Yes Patient verbally consented to billing insurance company: Yes Patient informed of any privacy concerns related to visit: Yes Minutes spent on Phone/Video with Pt.: 10 Assessment and Plan Assessment & Plan (1) Hypothyroidism (acquired): Code(s): E03.9 - Hypothyroidism, unspecified Plan: TSH level is too high Will increase levothyroxine from 75 mcg daily to 88 mcg daily Will recheck in about 6 weeks (2) Hyperlipidemia: Code(s): E78.5 - Hyperlipidemia, unspecified Plan: Following lipids and her HDL is too low. Triglycerides are too high Triglycerides may be high due to multiple factors including hypothyroidism and elevated fasting blood sugars She will work on exercise and we will work on underlying conditions that may be affecting triglycerides. If they continue to rise may consider (3) Pre-diabetes: Code(s): R73.03 - Prediabetes Plan: Ongoing elevated fasting blood sugars at her last A1c was 5.7%; pre diabetes Encouraged exercise and a diet lower in sugars and starches Orders: Orders Comprehensive [place]. Panel Fast Today R73.01 - Impaired fasting glucose, Z00.00 - Encounter for general adult medical examination without abnormal findings Lipid Panel Today E78.5 - Hyperlipidemia, unspecified, Z00.00 - Encounter for general adult medical examination without abnormal findings Triiodothyronine T3 Total Today E03.9 - Hypothyroidism, unspecified Free T4 (Free Thyroxine) Today E03.9 - Hypothyroidism, unspecified Thyroid Stimulating Hormone Today E03.9 - Hypothyroidism, unspecified Medications: Changed From levothyroxine 75 mcg PO QAM 30 tabs 1RF To levothyroxine 88 mcg PO QAM 90 tabs 2RF 90 days Coding Level of Care Code Tele Est Pt Level 2 (86465) Diagnoses Hypothyroidism (acquired) E03.9 Hyperlipidemia E78.5 Pre-diabetes R73.03
== END 2023-01-23 15:45 ==
LOC: HO.HMGFM 15:22
PROVIDERS: PCP Family Medicine; Visit Provider Family Medicine
DX: E03.9 Hypothyroidism, unspecified (principal); E78.5 Hyperlipidemia, unspecified; R73.03 Prediabetes
CPT/HCPCS: 99441

== ENCOUNTER 2023-03-18 08:30 | Outpatient (REF) | payer OTHER, SELFPAY ==
[2023-03-18 12:34] LABS: Alanine Aminotransferase 20 U/L (0-31); Albumin Level 4.4 g/dL (3.5-5.0); Alkaline Phosphatase 95 U/L (39-117); Anion Gap 14 (12-20); Aspartate Amino Transferase 23 U/L (5-31); Bilirubin Total 0.5 mg/dL (0.0-1.0); Blood Urea Nitrogen 11 mg/dL (9-16); Calcium 9.8 mg/dL (8.4-10.2); Carbon Dioxide 28 mmol/L (22-29); Chloride 105 mmol/L (96-108); Cholesterol 203 mg/dL (<200); Estimated Glomerular Filt Rate > 60; Glucose Fasting 96 mg/dL (60-99); HDL Cholesterol 35 mg/dL (>40); LDL Cholesterol Calculated 130 mg/dL (<100); Potassium 4.6 mmol/L (3.3-5.1); Sodium 142 mmol/L (135-145); Total Protein 7.5 g/dL (6.5-8.0); Triglycerides 194 mg/dL (<150)
[2023-03-18 12:50] LABS: Free T4 (Free Thyroxine) 0.98 ng/dL (0.71-1.85); Thyroid Stimulating Hormone 1.78 uIU/mL (0.32-4.0)
[2023-03-20 02:23] LABS: Triiodothyronine T3 Total 85 ng/dL (76-181)
== END 2023-03-18 08:31 | disposition home or self-care (01) ==
LOC: HO.HMGCLDS 08:30
PROVIDERS: PCP Family Medicine; Visit Provider Family Medicine
DX: Z00.00 Encounter for general adult medical examination without abnormal findings (principal); R73.01 Impaired fasting glucose; E78.5 Hyperlipidemia, unspecified; E03.9 Hypothyroidism, unspecified
CPT/HCPCS: 36415; 80053; 80061; 84439; 84443; 84480

== ENCOUNTER 2023-03-22 10:25 | Day surgery (SDC) | payer OTHER, SELFPAY ==
--- NOTE | 2023-03-22 10:26 | MHC.SHP ---
Pre-Procedural Eval Section A Date of Service: 03/22/23 The patient is an INPATIENT: No The History & Physical has been completed within 30 days and I have reviewed it.: No Section B Chief Complaint: GERD without esophagitis Relevant Family History (Specify if Yes): No Relevant Social History: Tobacco Use (former smoker) Present Medications: see Short Stay Collaborative assessment Medical History: Significant History (Heartburn Hypothyroidism (acquired)) History of Previous Operations: Relevant previous surgery/procedure and date(s) (hx of knee surgery) Allergies: Allergies Allergy/AdvReac Type Severity Reaction Status Date / Time Antihistamine Allergy Severe severe Uncoded 01/23/23 15:16 palpitations Review of Systems Sugical H&P ROS: Negative: Constitution, Cardiovascular, Respiratory and Gastrointestinal Exam Surgical H&P Exam: Normal: Heart, Normal: Lungs, Normal: Extremities and Normal: Abdomen Plan Diagnosis/Plan: Unchanged I have reviewed the history and physical and performed a pertinent physical examination on my patient. No changes have occurred unless specified. Time Spent With Patient Time: Total time managing care of this patient today ____ minutes.
[2023-03-22 10:40] VITALS: BMI 31.1
[2023-03-22 10:43] VITALS: BP 135/68; PULSE 64; RESP 18; TEMP 36.1; O2SAT 97
--- NOTE | 2023-03-22 11:30 | HO.ANESPROP2 ---
[facility] Active Problems Active Problems: All Active Problems (Updated 01/14/23 @ 09:19 by Merrill Marvin MD) Sprain of right knee (Acute) Pre-diabetes (Acute) Screening for osteoporosis (Acute) Screening for cervical cancer (Acute) Breast cancer screening by mammogram (Acute) Screening for colon cancer (Acute) Elevated fasting glucose (Acute) Adult general medical exam (Acute) GERD (gastroesophageal reflux disease) (Acute) Hypothyroidism (acquired) (Acute) Hyperlipidemia (Acute) Elevated ALT measurement (Acute) Mild anemia (Acute) Loss of appetite (Acute) Nausea (Acute) Anxiety and depression (Acute) Fracture of right tibial plateau (Acute) Past Medical History Medical History Heartburn Hypothyroidism (acquired) Family History Family history of problems with anesthesia: No Surgical History Surgical History History of knee surgery History of Problems with Anesthesia: No Social History Social History Household Members: Family Housing: House Do you presently have visiting nurse or other home services: No Patient Tobacco Use Status: Former Tobacco user Quit Date: 15 years e-Cigarette/Vaping Use: Never Used Second Hand Smoke Exposure: No Use of substances other than those prescribed or required for medical reasons: No Are you DNR?: No Advance Directives: No Advance Directives Information Provided: Yes service: No Current occupational status: employed Current occupation: [employer]- Current occupational exposures/hazards: No Cognitive needs: No Hearing needs: No Vision needs: No Meds Allergies Allergy/AdvReac Type Severity Reaction Status Date / Time Antihistamine Allergy Severe severe Uncoded 01/23/23 15:16 palpitations Active Medications: Current Medications Lactated Ringer's (Lr) 1,000 mls @ 50 mls/hr IVCONT .Q20H ANDER Last Admin: 03/22/23 11:01 Dose: 50 mls/hr Exam Exam Date and Time: March 22, 2023 1130 Height,Weight and Vital Signs: Height 5 ft 2 in Weight 77.111 kg Last Vital Signs Temp 97.0 F 03/22/23 10:43 Pulse 64 03/22/23 10:43 Resp 18 03/22/23 10:43 BP 135/68 03/22/23 10:43 Pulse Ox 97 03/22/23 10:43 O2 Del Method Room Air 03/22/23 10:43 Airway Mallampati Class: II (bob top front on left, multiple ones laterally) TM Dist: >3cm Neck ROM: Full Heart: rrr Lungs: cta Assessment and Plan Assessment Anesthesia Assessment: Anesthesia Plan Discussed and Chart Reviewed Final Anesthetic Review Family History of Problems with Anesthesia: No History of Problems with Anesthesia: No NPO: Yes ASA Class: II Final Preanesthetic Review: No Changes in Pt Med Stat, Meds/Allgs Chart Reviewed and Consent Obtained/Reviewed Patient Risk: Intermediate Procedure Risk: Intermediate Anesthetic Plan Anesthetic Plan: MAC: Disposition: Standard PACU
--- NOTE | 2023-03-22 11:40 | W.PM.OPN ---
Operative Note Operative Note Date of Service: 03/22/23 Narrative: FLEXIBLE TRANSORAL UPPER GASTROINTESTINAL ENDOSCOPY WITH BIOPSIES Pre-op diagnosis: GERD, hx of H Pylori infection Post-op diagnosis: GERD, gastritis Endoscopist:? Lopez Eldridge MD Anesthesia:?MAC Consent: Indications for the procedure and potential complications of bleeding, perforation, reaction to medications and missed diagnosis were discussed with the patient and informed consent was obtained. Instrument: Olympus GIF H 190 mid size upper endoscope Monitoring: Vital signs and clinical assessment, continuous EKG monitoring, Pulse oximetry, Carbon Dioxide monitoring and blood pressure monitoring were done throughout the procedure. Procedure: The patient was placed in the left lateral decubitis position and pre-procedure medications were administered and a bite block was placed. The endoscope was inserted into the mouth and advanced under direct vision to the third part of duodenum. A careful inspection was made as the upper endoscope was withdrawn including a retroflexed examination of the proximal stomach; Findings and interventions are described below. Findings: Larynx: Normal Esophagus: GE junction at 36 cms. No esophagitis or Clemons's. Stomach: Moderate gastric erythema with nodular appearing mucosa in the gastric body. Biopsies were obtained from the antrum and body of the stomach. Grade 2 flap valve on retroflexed examination of the cardia. Duodenum: Normal bulb and descending duodenum Intervention: Biopsies as noted above Impression and Post Procedure Diagnosis: Endoscopy Findings: STOMACH: Moderate gastric erythema with nodular appearing mucosa in the gastric body. Biopsies were obtained from the antrum and body of the stomach. Plan: Await pathology results Patient has an appointment on 04/04/23 in the GI Clinic with ROB Gautam . Above findings were reviewed with the patient and GERD handout was given in the discharge area
[2023-03-22 11:56] VITALS: BP 89/49; PULSE 61; RESP 16; TEMP 36.1; O2SAT 96
[2023-03-22 12:11] VITALS: BP 119/74; PULSE 63; RESP 18; O2SAT 93
[2023-03-22 12:26] VITALS: BP 130/81; PULSE 56; RESP 16; O2SAT 96
[2023-03-22 12:41] VITALS: BP 134/85; PULSE 61; RESP 18; TEMP 36.3; O2SAT 97
== END 2023-03-22 13:15 | disposition home or self-care (01) ==
PROVIDERS: PCP Family Medicine; Visit Provider Internal Medicine Gastroenterology
PROC: 0DJ08ZZ Inspection of Upper Intestinal Tract, Via Natural or Artificial Opening Endoscopic (ICD-10-PCS; CPT 43235; principal; 2023-03-22 12:30)
DX: K21.9 Gastro-esophageal reflux disease without esophagitis (principal); E03.9 Hypothyroidism, unspecified; K29.50 Unspecified chronic gastritis without bleeding; Z86.19 Personal history of other infectious and parasitic diseases; Z79.899 Other long term (current) drug therapy; Z88.8 Allergy status to other drugs, medicaments and biological substances; Z87.891 Personal history of nicotine dependence
CPT/HCPCS: 43239; 88305; 88342

== ENCOUNTER → 2023-03-22 10:25 | Outpatient (BNV) | payer OTHER, SELFPAY | PROVIDERS: PCP Family Medicine; Visit Provider Internal Medicine Gastroenterology | DX: K21.9 Gastro-esophageal reflux disease without esophagitis (principal); Z86.19 Personal history of other infectious and parasitic diseases; K29.70 Gastritis, unspecified, without bleeding | CPT/HCPCS: 43239 ==

== ENCOUNTER 2023-04-04 08:58 | Outpatient (AMB) | payer OTHER, SELFPAY ==
--- NOTE | 2023-04-04 09:03 | A.OFFVIS_ITS ---
Intake Vital Signs 04/04/23 09:05 Height 5 ft 2 in Weight 168 lb BMI 30.7 BP 130/71 Blood Pressure Location Lt brachial Position Sitting Pulse 55 Intake Visit Reasons: S/p egd- Chente Intake Note: Patient follow up for GERD and EGD results. patient cc: acid reflex and abdominal discomfort. Denies any other GI ssues. Allergies Antihistamine Allergy (Severe, Uncoded 01/23/23 15:16) severe palpitations Medication List - Last Reconciled 04/04/23 by Cassi Curry PA-C citalopram 40 mg PO DAILY levothyroxine 88 mcg PO QAM 90 days omeprazole 20 mg PO DAILY 30 days HPI HPI Comments History of Present Illness Details A 62 y/o female f/u after EGD for acid reflux-she tolerated procedure well. Taking omeprazole 20 mg daily occasional breakthrough She drinks 8 cups a day-she gave up chocolate, lissa- No other GI or general complaints She does not smoke however she is around secondhand smoker smokes 3 packs per day She has no nausea, vomiting hematemesis, hematochezia fever or chills PFSH Medical History Heartburn Hypothyroidism (acquired) Surgical History History of esophagogastroduodenoscopy (EGD) History of knee surgery Social History (Updated 04/04/23 @ 12:10 by Cassi Curry PA-C) Household Members: Family Housing: House Do you presently have visiting nurse or other home services: No Patient Tobacco Use Status: Former Tobacco user Quit Date: 15 years e-Cigarette/Vaping Use: Never Used Second Hand Smoke Exposure: Yes service: No Current occupational status: employed Current occupation: [employer] Current occupational exposures/hazards: No Cognitive needs: No Hearing needs: No Vision needs: No Review of Systems Const All systems reviewed & are unremarkable except as noted in HPI and below Card Denies chest pain and Denies dyspnea Resp Denies dyspnea GI Denies abdominal pain and Reports heartburn (Improved) Physical Exam Vital Signs: Last Vital Signs Pulse 55 04/04/23 09:05 BP 130/71 04/04/23 09:05 BMI result Body Mass Index 30.7 Const General: cooperative, healthy appearing, comfortable and no acute distress Orientation/consciousness: patient oriented x3 Limitations: no limitations Resp Effort & Inspection: normal respiratory effort and able to speak in complete sentences Neuro General: patient oriented x3 Extrem General: Yes full ROM Psych Appearance: grossly normal and well kempt Mental Status: mental status grossly normal Speech and movement: Normal speech and movement present Affect: normal affect Attitude: cooperative Thought process: Normal thought process present Thought content: Normal thought content present Insight: Good insight present (Psych) Judgement: Good judgement present (Psych) Results Reviewed Results Reviewed: Endoscopy Findings: STOMACH: Moderate gastric erythema with nodular appearing mucosa in the gastric body. Biopsies were obtained from the antrum and body of the stomach. Plan: Await pathology results Patient has an appointment on 04/04/23 in the GI Clinic with ROB Gautam . Above findings were reviewed with the patient and GERD handout was given in the discharge area celena: Loli Gonzalez Age/Sex: 62/F Attending: Lopez Eldridge MD : 1960 Submitted by: Lopez Eldridge MD Copies to: Ceasar Odell MD MR #: [id number] Status: [facility] [place] Collected: 03/22/23 Location: [facility] Received: 03/22/23 Diagnosis A. Stomach, antrum, biopsy: Antral-type mucosa with moderate chronic inactive inflammation; no Helicobacter organisms seen. B. Stomach, body, biopsy: Antral-type and oxyntic mucosa with moderate chronic, focally active, inflammation; no Helicobacter organisms seen. Clinical History Pre-Op Dx: GERD Post-Op Dx: GERD gastritis Microscopic Description A, B. Microscopic sections reviewed. Immunostain for H. pylori is non-reactive (A and B). Material Received A. Bx antrum (R/O H. Pylori) B. Bx gastric body Gross Description Received in 2 parts. Part A: Received in formalin labeled ?bx antrum (rule out H. pylori)? are 2 glistening, semitranslucent, soft, rogers-pink irregular and rectangular tissue fragments measuring 0.15 and 0.3 cm in greatest dimension which are submitted in toto in a single cassette labeled A. Part B: Received in formalin labeled ?bx gastric body? are 2 glistening, semitranslucent, soft, rogers-pink rectangular tissue fragments measuring 0.3 and 0.4 cm in greatest dimension which are submitted in toto in a single cassette labeled B. CEDS Special studies ordered and performed: immunostain for H. pylori on A and B Copies To Ceasar Odell MD [address] [place] [id number] Patient: Loli Gonzalez Age/Sex: 62/F MR#: [id number] Page 1 of 2 Assessment & Plan Assessment & Plan (1) GERD (gastroesophageal reflux disease): Comment: Review reflux precautions Continue omeprazole fairly good response, somewhat cancer phobic Code(s): K21.9 - Gastro-esophageal reflux disease without esophagitis Plan: Review reflux precautions Continue PPI Avoid culprits Patient Instructions: Very pleasant 62-year-old female persistent acid reflux follows up after recent EGD Lifestyle and dietary changes beneficial Review reflux precautions Continue PPI Avoid culprits Call with questions or concerns Coding Level of Care Code Est Pt Level 3 (74587) Diagnoses GERD (gastroesophageal reflux disease) K21.9 Time Spent (min) 20
[2023-04-04 09:05] VITALS: BP 130/71; PULSE 55; BMI 30.7
== END 2023-04-04 10:40 | disposition home or self-care (01) ==
PROVIDERS: PCP Family Medicine; Visit Provider Physician Assistant
DX: K21.9 Gastro-esophageal reflux disease without esophagitis (principal)
CPT/HCPCS: 99213

== ENCOUNTER → 2023-04-04 08:58 | Outpatient (BNVA) | payer OTHER, SELFPAY | PROVIDERS: PCP Family Medicine; Visit Provider Physician Assistant ==

== ENCOUNTER 2023-05-20 16:19 | Outpatient (AMB) | payer OTHER, SELFPAY ==
--- NOTE | 2023-05-20 16:38 | MHC.PC.OV ---
Vital Signs 05/20/23 16:39 Height 5 ft 2 in Weight 165 lb BMI 30.2 BP 126/68 Blood Pressure Location Rt brachial Position Sitting Respiration 13 Pulse 70 Pulse Source Pulse Oximeter Pulse Oximetry (%) 97 Oxygen Delivery Method Room Air Intake Visit Reasons: Follow Up On Labs Intake Note: Patient is here to follow up with labs. Patient shares no concerns at this time. 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 Had increased levythyroxine from 75 mcg daily to 88 mcg daily and encouraged increased exercise to bring HDL up. Labs were drawn 03/18/23. Reviewed labs with pt. Triglycerides improved from 259 to 194. TC 203. LDL 130. HDL low at 35. TSH level improved from 5.56 to 1.78. She is on levothyroxine 88 mcg. [facility] Medical History Heartburn Hypothyroidism (acquired) Surgical History History of esophagogastroduodenoscopy (EGD) History of knee surgery Social History (Updated 04/04/23 @ 12:10 by Cassi Curry PA-C) Household Members: Family Housing: House Do you presently have visiting nurse or other home services: No Patient Tobacco Use Status: Former Tobacco user Quit Date: 15 years e-Cigarette/Vaping Use: Never Used Second Hand Smoke Exposure: Yes service: No Current occupational status: employed Current occupation: [employer]- Current occupational exposures/hazards: No Cognitive needs: No Hearing needs: No Vision needs: No Questionnaire Thrive Questionnaire Date Thrive assessed: 07/31/22 LYNETTE-7 AMB Questionnaire LYNETTE-7 Date LYNETTE - 7 assessed: 07/31/22 Source: Developed by Drs. Kvng Menard, Darline Yung, Les Kenney and colleagues, with an educational ivan from [employer] Review of Systems Const Denies chills, Denies fatigue, Denies fever(s), Denies headache(s) and Denies weakness ENT Denies dizziness and Denies headache(s) Card Denies chest pain, Denies lightheadedness, Denies dyspnea and Denies other (Palpitations) Resp Denies cough, Denies dyspnea, Denies wheezing and Denies other ( shortness of breath) Musc Denies numbness and Denies tingling Neuro Denies dizziness, Denies headache(s), Denies numbness, Denies tingling, Denies paresthesias and Denies weakness Psych Denies anxiety and Denies depression Endo Denies fatigue Aller/Immun Denies wheezing Physical exam (Primary Care) Vital Signs: Last Vital Signs Pulse 70 05/20/23 16:39 Resp 13 05/20/23 16:39 BP 126/68 05/20/23 16:39 Pulse Ox 97 05/20/23 16:39 Oxygen Delivery Method Room Air 05/20/23 16:39 BMI result Body Mass Index 30.2 Tobacco/Smoking Status: Tobacco use Status Tobacco use date assessed 01/23/23 05/20/23 16:44 Patient Tobacco Use Status Former Tobacco user 05/20/23 16:44 e-Cigarette/Vaping Use Never Used 05/20/23 16:44 Thrive Assessment: Date of Thrive Assessment Date Thrive assessed 07/31/22 05/20/23 16:44 Const General: no acute distress and well developed Nutritional Appearance: well nourished Orientation/consciousness: patient oriented x3 [facility]: Yes normocephalic and Yes atraumatic Eyes General: appearance normal, both eyes and all related structures Pupils: Equal, round and reactive pupils present EOM: EOMs intact bilaterally Resp Effort & Inspection: normal respiratory effort Auscultation: clear to auscultation bilaterally Cardio Rate: regular rate Rhythm: regular rhythm Heart sounds: S1 normal heart sound present, S2 normal heart sound present, no gallops, no murmurs and no rubs Neuro General: patient oriented x3 and gait normal Cranial nerves: Yes Equal, round and reactive pupils present Psych Affect: normal affect Assessment and Plan Assessment & Plan (1) Hyperlipidemia: Code(s): E78.5 - Hyperlipidemia, unspecified Plan: Triglycerides?have?improved.??Her?LDL?however?has?increased HDL?is?still?a?bit?low?though?it?has?improved Encouraged?diet?low?in?saturated?fats?and?cholesterol?and?increase?in?her?exercise Will?follow (2) Hypothyroidism (acquired): Code(s): E03.9 - Hypothyroidism, unspecified Plan: Had?increased?her?levothyroxine?from?75?mcg?daily?to?88?mcg?daily?and?her?thyroid?hormone?levels?are?all?within Normal?range?now. Continue?current?medication?and?we?can?follow-up?again?on?this?in?about?6?months (3) Low HDL (under 40): Code(s): E78.6 - Lipoprotein deficiency Plan: As?above,?encouraged?exercise?and?a?diet?higher?in?Olema?3?fatty?acids Orders: Orders Comprehensive [place]. Panel Fast Today Z00.00 - Encounter for general adult medical examination without abnormal findings UA and rflx microscopic Today Z00.00 - Encounter for general adult medical examination without abnormal findings Free T4 (Free Thyroxine) Today E03.9 - Hypothyroidism, unspecified Triiodothyronine T3 Total Today E03.9 - Hypothyroidism, unspecified Lipid Panel Today Z00.00 - Encounter for general adult medical examination without abnormal findings Microalbumin, Random (w Creat) Today I10 - Essential (primary) hypertension TSH reflex Free T4 Today Z00.00 - Encounter for general adult medical examination without abnormal findings Coding Level of Care Code Est Pt Level 4 (19205) Diagnoses Hyperlipidemia E78.5 Hypothyroidism (acquired) E03.9 Low HDL (under 40) E78.6
[2023-05-20 16:39] VITALS: BP 126/68; PULSE 70; RESP 13; O2SAT 97; BMI 30.2
== END 2023-05-20 17:33 | disposition home or self-care (01) ==
PROVIDERS: PCP Family Medicine; Visit Provider Family Medicine
DX: E78.5 Hyperlipidemia, unspecified (principal); E03.9 Hypothyroidism, unspecified; E78.6 Lipoprotein deficiency
CPT/HCPCS: 99214

== ENCOUNTER 2023-11-12 08:31 | Outpatient (REF) | payer OTHER, SELFPAY ==
[2023-11-12 10:33] LABS: Appearance Urine Clear; Color Urine Yellow; Glucose Urine UA Negative (Negative); Leukocyte Esterase Urine Small (1+) (Negative); Nitrite Urine Negative (Negative); PH 7.5 (5.0-9.0); UMIC TRIGGER UA YES; Urine Blood Trace (Negative); Urine Ketones Negative (Negative); Urine Protein Negative (Neg-Trace)
[2023-11-12 11:02] LABS: Bacteria Urine 1+ (None Seen); Hyaline Casts Urine 0-2 /LPF (0-2); RBC Urine 0-2 /HPF (0-2); WBC Urine 0-5 /HPF (0-5)
[2023-11-12 11:03] LABS: Alanine Aminotransferase 17 U/L (0-31); Albumin Level 4.3 g/dL (3.5-5.0); Alkaline Phosphatase 108 U/L (39-117); Anion Gap 10 (12-20); Aspartate Amino Transferase 24 U/L (5-31); Bilirubin Total 0.3 mg/dL (0.0-1.0); Blood Urea Nitrogen 12 mg/dL (9-16); Calcium 9.4 mg/dL (8.4-10.2); Carbon Dioxide 31 mmol/L (22-29); Chloride 107 mmol/L (96-108); Cholesterol 194 mg/dL (<200); Estimated Glomerular Filt Rate > 60; Glucose Fasting 98 mg/dL (60-99); HDL Cholesterol 40 mg/dL (>40); LDL Cholesterol Calculated 110 mg/dL (<100); Potassium 4.5 mmol/L (3.3-5.1); Sodium 143 mmol/L (135-145); Total Protein 7.2 g/dL (6.5-8.0); Triglycerides 221 mg/dL (<150)
[2023-11-12 11:07] LABS: Creatinine Urine 104.81 mg/dL; Microalbum/Creatinine Ratio Ur 8.5 ug/mg cr (<30)
[2023-11-12 11:21] LABS: Free T4 (Free Thyroxine) 1.02 ng/dL (0.71-1.85); TSH reflex Free T4 1.17 uIU/mL (0.32-4.0)
[2023-11-13 06:44] LABS: Triiodothyronine T3 Total 55 ng/dL (76-181)
== END 2023-11-12 08:32 | disposition home or self-care (01) ==
LOC: HO.HMGCLDS 08:31
PROVIDERS: PCP Family Medicine; Visit Provider Family Medicine
DX: Z00.00 Encounter for general adult medical examination without abnormal findings (principal); E03.9 Hypothyroidism, unspecified; I10 Essential (primary) hypertension
CPT/HCPCS: 36415; 80053; 80061; 81001; 82043; 82570; 84439; 84443; 84480

== ENCOUNTER 2023-11-20 08:53 | Outpatient (AMB) | payer OTHER, SELFPAY ==
[2023-11-20 09:02] VITALS: BP 118/62; PULSE 70; O2SAT 96; BMI 29.9
--- NOTE | 2023-11-20 09:02 | A.OFFPC_ITS ---
Vital Signs 11/20/23 09:02 Height 5 ft 2 in Weight 163 lb 6 oz BMI 29.9 BP 118/62 Blood Pressure Location Lt brachial Position Sitting Pulse 70 Pulse Source Pulse Oximeter Pulse Oximetry (%) 96 Oxygen Delivery Method Room Air Intake Visit Reasons: CPE with f/u labs and health maint. Intake Note: Patient is here for her physical today. Allergies Antihistamine Allergy (Severe, Uncoded 11/20/23 09:04) severe palpitations Medication List - Last Reconciled 11/20/23 by Ceasar Odell MD citalopram 40 mg PO DAILY levothyroxine 88 mcg PO QAM 90 days omeprazole 20 mg PO DAILY 30 days Tobacco use date assessed: 11/20/23 Fall risk assessment: No Falls in past year Last assessed Fall Risk: 11/20/23 Dental Screening Dental Screen Date: 11/20/23 Did you have a dental visit in the last 12 months?: Yes Did you have a dental problem in the last 6 months where you did not have access to dental care?: No Was dental information given to patient?: Patient has dentist HPI CPE with f/u labs and health maint. HPI Details 63 y/o female presents for a CPE with f/ u labs and health maintenance. Labs were drawn 11/12/23. Reviewed labs with pt. Triglycerides 221. TC 194. LDL 110. HDL 40. TSH 1.17. Free T4 1.02. Total T3 55. Hx of pre-diabetes and fasting glucose 98. PFSH Medical History Heartburn Hypothyroidism (acquired) Surgical History History of esophagogastroduodenoscopy (EGD) History of knee surgery Social History Household Members: Family Housing: House Do you presently have visiting nurse or other home services: No Patient Tobacco Use Status: Former Tobacco user e-Cigarette/Vaping Use: Never Used Second Hand Smoke Exposure: Yes service: No Current occupational status: employed Current occupation: [employer]- Current occupational exposures/hazards: No Cognitive needs: No Hearing needs: No Vision needs: No Questionnaire PHQ-9 Over the last 2 weeks, how often have you been bothered by any of the following problems? 1. Little interest or pleasure in doing things: not at all 2. Feeling down, depressed, or hopeless: not at all 3. Trouble falling or staying asleep, or sleeping too much: not at all 4. Feeling tired or having little energy: not at all 5. Poor appetite or overeating: not at all 6. Feeling bad about yourself - or that you are a failure or have let yourself or your family down: not at all 7. Trouble concentrating on things, such as reading the newspaper or watching television: not at all 8. Moving or speaking so slowly that other people could have noticed. Or the opposite - being so fidgety or restless that you have been moving around a lot more than usual: not at all 9. Thoughts that you would be better off or of hurting yourself in some way: not at all Total score: 0 Depression Screening Interpretation: Negative Depression Screening Done: Yes 44105 - PHQ-9 Billing: Yes Source: Developed by Drs. Kvng Menard, Darline Yung, Les Kenney and colleagues, with an educational ivan from [employer]. Thrive Questionnaire Date Thrive assessed: 11/20/23 I am a: Patient What is your living situation today?: I have a steady place to live Within the past 12 months, did the food you bought not last and you didn't have the money to get more?: Never true Within the past 12 months, did you worry whether your food would run out before you got money to buy more?: Never true Do you have trouble paying for medicines?: No Do you have trouble getting transportation to medical appointments?: No Do you have trouble paying your heating and electricity bill?: No Do you have trouble taking care of your child, family member or friend?: No Do you have trouble with day-to-day activities such as bathing, preparing meals, shopping, managing finances, etc.?: No Are you currently unemployed and looking for a job?: No Are you interested in more education?: No THRIVE Score: 0 AUDIT C Alcohol Use Questionnaire (AUDIT-C) 1. How often do you have a drink containing alcohol?: Monthly or less 2. How many drinks containing alcohol do you have on a typical day when you are drinking?: 1 or 2 3. How often do you have six or more drinks on one occasion?: Never Total Score: 1 LYNETTE-7 AMB Questionnaire LYNETTE-7 Date LYNETTE - 7 assessed: 11/20/23 Feeling nervous, anxious, or on edge: 0 = Not at all Not being able to stop or control worryin = Not at all Worrying too much about different things: 0 = Not at all Trouble relaxin = Not at all Being so restless that it is hard to sit still: 0 = Not at all Becoming easily annoyed or irritable: 0 = Not at all Feeling afraid as if something awful might happen: 0 = Not at all Total LYNETTE-7 score (0-4 normal; 5-9 mild; 10-14 moderate; 15-21 severe): 0 Source: Developed by Drs. Kvng Menard, Darline Yung, Les Kenney and colleagues, with an educational ivan from [employer]. LYNETTE-7 Assessment Billing LYNETTE-7 Assessment Tool: LYNETTE-7 Assessment 97652 Review of Systems Const Denies chills, Denies fatigue, Denies fever(s), Denies headache(s) and Denies weakness Eyes Denies change in vision ENT Denies dizziness, Denies headache(s), Denies hearing loss, Denies nasal congestion, Denies sinus pain, Denies sinus pressure and Denies sore throat Card Denies chest pain, Denies lightheadedness, Denies dyspnea and Denies other (palpitations) Resp Denies cough, Denies dyspnea and Denies wheezing GI Denies abdominal pain, Denies melena, Denies hematochezia, Denies change in bowel habits, Denies dyspepsia and Denies nausea Denies hematuria and Denies dysuria Musc Denies abnormal gait, Denies myalgias, Denies arthralgias, Denies numbness and Denies tingling Skin/Breast Denies rash, Denies unusual bruising and Denies wounds Neuro Denies abnormal gait, Denies dizziness, Denies headache(s), Denies memory loss, Denies numbness, Denies Sensory deficit (Neuro), Denies tingling and Denies weakness Psych Denies anxiety, Denies depression and Denies memory loss Endo Denies cold intolerance, Denies fatigue, Denies heat intolerance, Denies polydipsia and Denies polyuria Nathan/Lymph Denies easy bleeding and Denies easy bruising Aller/Immun Denies wheezing Physical exam (Primary Care) Vital Signs: Last Vital Signs Pulse 70 11/20/23 09:02 BP 118/62 11/20/23 09:02 Pulse Ox 96 11/20/23 09:02 Oxygen Delivery Method Room Air 11/20/23 09:02 BMI result Body Mass Index 29.9 Tobacco/Smoking Status: Tobacco use Status Tobacco use date assessed 11/20/23 11/20/23 09:14 Patient Tobacco Use Status Former Tobacco user 11/20/23 09:14 e-Cigarette/Vaping Use Never Used 11/20/23 09:14 PHQ-9: PHQ-9 Score PHQ-9: Total score 0 11/20/23 09:28 Depression Screening Interpretation: Negative Thrive Assessment: Date of Thrive Assessment Date Thrive assessed 11/20/23 11/20/23 09:14 Const General: no acute distress, well developed, alert and awake Nutritional Appearance: well nourished Orientation/consciousness: patient oriented x3 HENMT Head: Yes normocephalic and Yes atraumatic Ears: hearing grossly normal bilaterally and TM's normal bilaterally General nose exam: Normal external nose present and Normal nares present Mouth: Normal oral and palatal mucosa present and moist mucous membranes Teeth and gingiva: dentition normal Throat: Yes posterior oropharynx normal Eyes General: appearance normal, both eyes and all related structures Pupils: Equal, round and reactive pupils present and Pupil accommodation reflex normal EOM: EOMs intact bilaterally Neck Neck: Yes normal visual inspection, Yes no lymphadenopathy and Yes trachea midline Thyroid: Thyroid normal Carotids: no bruits Lymphatic: no lymphadenopathy noted Chest Chest palpation & inspection: normal inspection of the chest Resp Effort & Inspection: normal respiratory effort Auscultation: clear to auscultation bilaterally Cardio Rate: regular rate Rhythm: regular rhythm Heart sounds: S1 normal heart sound present, S2 normal heart sound present, no gallops, no murmurs and no rubs Bruits: no abdominal aortic bruits and no carotid bruits GI Palpation (GI): No Abdominal aortic bruit present, Soft to palpation, nontender, No hepatosplenomegaly present and No Rebound tenderness present Auscultation: normal bowel sounds General: Yes no CVA tenderness Back/Spine/Pelvis Back: no CVA tenderness Cervical Spine: cervical ROM normal and No Cervical spine tenderness Thoracic/Lumbar Spine: thoraco-lumbar ROM normal, No pain with thoraco-lumbar ROM, No thoracic spinal tenderness and No lumbar spinal tenderness Skin Lesions: no lesions Rashes: no rashes Trauma: no lacerations or abrasions Wounds: no wounds Nails: normal Neuro General: patient oriented x3 Cranial nerves: Yes Equal, round and reactive pupils present Cognition (Neuro): normal cognition Gait exam (Neuro): Normal gait present Motor exam (neuro): 5/5 motor strength present throughout Sensory Exam: No Sensory deficit (Neuro) Deep tendon reflexes (DTR's): Right patellar reflex intensity grade: 2+ and Left patellar reflex intensity grade: 2+ Extrem General: Yes normal to inspection and No edema Psych Appearance: grossly normal Affect: normal affect Attitude: cooperative Thought process: Normal thought process present Assessment and Plan Assessment & Plan (1) Adult general medical exam: Code(s): Z00.00 - Encounter for general adult medical examination without abnormal findings Plan: 63-year-old?female?presents?for?complete?physical?exam Encouraged?healthy?diet?with?active?lifestyle?and?plenty?of?exercise (2) Hyperlipidemia: Code(s): E78.5 - Hyperlipidemia, unspecified Plan: Lipids?significantly?improved?with?diet?exercise?and?weight?loss LDL?still?a?little?above?goal?of?less?than?100 Continue?to?work?at?above?lifestyle?change (3) Hypothyroidism (acquired): Code(s): E03.9 - Hypothyroidism, unspecified Plan: Thyroid?hormone?level?was?adjusted?last?year?and?at?last?check?in?March, thyroid?hormone?levels?were?all?within?normal?range Most?recent?check?a?week?ago?showed?low?T3?but?TSH?and?free?T4?were?within?chemo l?range Will?repeat?thyroid?hormone?levels?in?about?6?weeks?and?will?adjust?if?needed. (4) Screening for colon cancer: Code(s): Z12.11 - Encounter for screening for malignant neoplasm of colon Plan: Cologuard?last?year?was?negative Continue?with?Cologuard?screening?in?about?2?years (5) Breast cancer screening by mammogram: Code(s): Z12.31 - Encounter for screening mammogram for malignant neoplasm of breast Plan: OverDue?for?mammogram-ordered (6) Screening for cervical cancer: Code(s): Z12.4 - Encounter for screening for malignant neoplasm of cervix Plan: Overdue?for?Pap?smear-referred?to?ob/gyn nurse (7) Screening for osteoporosis: Code(s): Z13.820 - Encounter for screening for osteoporosis Plan: No?diagnosis?of?osteoporosis?or?high?index?of?suspicion?to?start?screening?early . We?discussed?we?will?begin?bone?density?screenings?next?year Orders: Orders Free T4 (Free Thyroxine) Today E03.9 - Hypothyroidism, unspecified Thyroid Stimulating Hormone Today E03.9 - Hypothyroidism, unspecified Triiodothyronine T3 Total Today E03.9 - Hypothyroidism, unspecified Basic Metabolic Panel Today E03.9 - Hypothyroidism, unspecified, Z00.00 - Encounter for general adult medical examination without abnormal findings MM tomosynthesis screening BI Today Z12.31 - Encounter for screening mammogram for malignant neoplasm of breast Referrals PRODUCT DEVELOPMENT Referral Z12.4 - Encounter for screening for malignant neoplasm of cervix Medications: Refilled citalopram 40 mg PO DAILY 90 tabs 2RF Coding Level of Care Code Est Pt Level 3 (96435) Est Pt Prev Care 40-64y(10925) Diagnoses Adult general medical exam Z00.00 Hyperlipidemia E78.5 Hypothyroidism (acquired) E03.9 Screening for colon cancer Z12.11 Breast cancer screening by mammogram Z12.31 Screening for cervical cancer Z12.4 Screening for osteoporosis Z13.820 Additional Codes LYNETTE-7 Assessment Billing - LYNETTE-7 Assessment Tool: LYNETTE-7 Assessment 21422 ([id number])
== END 2023-11-20 09:43 | disposition home or self-care (01) ==
PROVIDERS: PCP Family Medicine; Visit Provider Family Medicine
DX: Z00.00 Encounter for general adult medical examination without abnormal findings (principal); E78.5 Hyperlipidemia, unspecified; E03.9 Hypothyroidism, unspecified; Z12.11 Encounter for screening for malignant neoplasm of colon; Z12.31 Encounter for screening mammogram for malignant neoplasm of breast; Z13.820 Encounter for screening for osteoporosis
CPT/HCPCS: 99396

== ENCOUNTER 2023-12-30 09:15 | Outpatient (REF) | payer OTHER, SELFPAY ==
[2023-12-30 13:55] LABS: Anion Gap 11 (12-20); Blood Urea Nitrogen 11 mg/dL (9-16); Calcium 9.5 mg/dL (8.4-10.2); Carbon Dioxide 30 mmol/L (22-29); Chloride 104 mmol/L (96-108); Estimated Glomerular Filt Rate > 60; Glucose Random 90 mg/dL (60-115); Sodium 141 mmol/L (135-145)
[2023-12-30 13:59] LABS: Free T4 (Free Thyroxine) 1.05 ng/dL (0.71-1.85); Thyroid Stimulating Hormone 3.89 uIU/mL (0.32-4.0)
[2023-12-31 08:18] LABS: Triiodothyronine T3 Total 67 ng/dL (76-181)
== END 2023-12-30 09:16 | disposition home or self-care (01) ==
LOC: HO.HMGCLDS 09:15
PROVIDERS: PCP Family Medicine; Visit Provider Family Medicine
DX: Z00.00 Encounter for general adult medical examination without abnormal findings (principal); E03.9 Hypothyroidism, unspecified
CPT/HCPCS: 36415; 80048; 84439; 84443; 84480

== ENCOUNTER → 2024-01-02 15:53 | Outpatient (AMB) | payer OTHER, SELFPAY ==
--- NOTE | 2024-01-02 15:10 | MHC.PC.OV ---
Intake Visit Reasons: f/u hypothyroidism via telemedicine [employer] Developer Required: No Allergies Antihistamine Allergy (Severe, Uncoded 01/02/24 15:11) severe palpitations Medication List - Last Reconciled 01/02/24 by Ceasar Odell MD citalopram 40 mg PO DAILY levothyroxine 100 mcg PO QAM 90 days omeprazole 20 mg PO DAILY 30 days Tobacco use date assessed: 11/20/23 Dental Screening Dental Screen Date: 11/20/23 HPI f/u hypothyroidism via telemedicine HPI Details 63 y/o female presents to f/u hypothyroidism via telemedicine. Labs were drawn 12/30/23. Reviewed labs with pt. TSH level 3.89. She is on levothyroxine 88 mcg. Total T3 improved from 55 to 67. [facility] Medical History Heartburn Hypothyroidism (acquired) Surgical History History of esophagogastroduodenoscopy (EGD) History of knee surgery Social History Household Members: Family Housing: House Do you presently have visiting nurse or other home services: No Patient Tobacco Use Status: Former Tobacco user e-Cigarette/Vaping Use: Never Used Second Hand Smoke Exposure: Yes service: No Current occupational status: employed Current occupation: [employer]- Current occupational exposures/hazards: No Cognitive needs: No Hearing needs: No Vision needs: No Questionnaire Thrive Questionnaire Date Thrive assessed: 11/20/23 LYNETTE-7 AMB Questionnaire LYNETTE-7 Date LYNETTE - 7 assessed: 11/20/23 Source: Developed by Drs. Kvng Menard, Darline Yung, Les Kenney and colleagues, with an educational ivan from [employer]. Review of Systems Const Denies chills, Denies fatigue, Denies fever(s), Denies headache(s) and Denies weakness ENT Denies dizziness and Denies headache(s) Card Denies dyspnea Resp Denies cough, Denies dyspnea, Denies wheezing and Denies other (shortness of breath) Musc Denies numbness and Denies tingling Neuro Denies dizziness, Denies headache(s), Denies numbness, Denies tingling and Denies weakness Psych Denies anxiety and Denies depression Endo Denies fatigue Aller/Immun Denies wheezing Physical exam (Primary Care) Tobacco/Smoking Status: Tobacco use Status Tobacco use date assessed 11/20/23 01/02/24 15:11 Patient Tobacco Use Status Former Tobacco user 01/02/24 15:11 e-Cigarette/Vaping Use Never Used 01/02/24 15:11 Thrive Assessment: Date of Thrive Assessment Date Thrive assessed 11/20/23 01/02/24 15:11 Const General: well developed; No acute distress Nutritional Appearance: well nourished Orientation/consciousness: patient oriented x3 HENMT Head: Yes normocephalic and Yes atraumatic Eyes General: appearance normal, both eyes and all related structures Pupils: Equal, round and reactive pupils present EOM: EOMs intact bilaterally Resp Effort & Inspection: normal respiratory effort Neuro General: patient oriented x3 and gait normal Cranial nerves: Yes Equal, round and reactive pupils present Psych Affect: normal affect Telehealth Telehealth Telehealth Platform: Telephone Location of provider rendering services: practice address Location of patient: address on file Patient Identification confirmed using: Name, : Yes Telehealth method: voice only Patient verbally consented to treatment: Yes Patient verbally consented to billing insurance company: Yes Patient informed of any privacy concerns related to visit: Yes Minutes spent on Phone/Video with Pt.: 5 Assessment and Plan Assessment & Plan (1) Hypothyroidism (acquired): Code(s): E03.9 - Hypothyroidism, unspecified Plan: T3?still?a?little?low Increasing?levothyroxine Will?recheck?levels?in?about?6?weeks Orders: Orders Comprehensive Met. Panel Today E03.9 - Hypothyroidism, unspecified Triiodothyronine T3 Total Today E03.9 - Hypothyroidism, unspecified Thyroid Stimulating Hormone Today E03.9 - Hypothyroidism, unspecified Free T4 (Free Thyroxine) Today E03.9 - Hypothyroidism, unspecified Medications: Changed From levothyroxine 88 mcg PO QAM 90 days 90 tabs 2RF To levothyroxine 100 mcg PO QAM 90 days 90 tabs 2RF Coding Level of Care Code Tele Est Pt Level 2 (07159) Diagnoses Hypothyroidism (acquired) E03.9
== END ==
LOC: HO.HMGFM 15:53
PROVIDERS: PCP Family Medicine; Visit Provider Family Medicine
DX: E03.9 Hypothyroidism, unspecified (principal)
CPT/HCPCS: 99441

== ENCOUNTER 2024-01-09 08:40 | Outpatient (REF) | payer OTHER, SELFPAY | END 2024-01-09 08:41 | disposition home or self-care (01) | LOC: HO.MAMMO 08:40 | PROVIDERS: PCP Family Medicine; Visit Provider Family Medicine | DX: Z12.31 Encounter for screening mammogram for malignant neoplasm of breast (principal) | CPT/HCPCS: 77063; 77067 ==

== ENCOUNTER → 2024-01-09 08:45 | Outpatient (BNV) | payer OTHER, SELFPAY | PROVIDERS: PCP Family Medicine; Visit Provider Radiology Diagnostic Radiology | DX: Z12.31 Encounter for screening mammogram for malignant neoplasm of breast (principal) | CPT/HCPCS: 77063; 77067 ==

== ENCOUNTER 2024-09-03 12:46 | Outpatient (REF) | payer OTHER, SELFPAY ==
[2024-09-03 20:23] LABS: Influenza A PCR NEGATIVE (Negative); Influenza B PCR NEGATIVE (Negative); Resp Syncy Virus RNA Qual PCR NEGATIVE (Negative); SARS COV2 PCR INHOUSE NEGATIVE (Negative)
== END 2024-09-03 12:47 | disposition home or self-care (01) ==
LOC: HO.LNP 12:46
PROVIDERS: PCP Family Medicine; Visit Provider Physician Assistant
DX: J06.9 Acute upper respiratory infection, unspecified (principal); R09.89 Other specified symptoms and signs involving the circulatory and respiratory systems
CPT/HCPCS: 0241U; 87880

== ENCOUNTER 2024-09-03 12:46 | Outpatient (AMB) | payer OTHER, SELFPAY ==
--- NOTE | 2024-09-03 13:06 | MHC.PC.OV ---
Vital Signs 09/03/24 13:11 BP 126/84 Blood Pressure Location Rt brachial Position Sitting Respiration 14 Pulse 67 Pulse Source Pulse Oximeter Temp 98.2 F Temp Source Oral Pulse Oximetry (%) 97 Oxygen Delivery Method Room Air Intake Visit Reasons: Sick Flu Intake Note: Had the flu in and July. Now having sore throat, cough, and fatigue. Supervisor Cured Meats Required: No Allergies Antihistamine Allergy (Severe, Uncoded 09/03/24 13:09) severe palpitations Medication List - Last Reconciled 09/03/24 by Lyly Valle PA-C benzonatate 100 mg PO TID PRN citalopram 40 mg PO DAILY fluticasone propionate 50 mcg/actuation (Flonase Allergy Relief) 1 spray intranasal BID levothyroxine 100 mcg PO QAM 90 days Tobacco use date assessed: 09/03/24 Fall risk assessment: No Falls in past year Last assessed Fall Risk: 09/03/24 Dental Screening Dental Screen Date: 11/20/23 HPI Sick Flu HPI Details Pt is a 64 y.o female who presents today with with sx of a headache, congestion, fatigue, sore throat, cough, chills. She has been using Aleeve with temporary improvement. She states her symptoms started yesterday. She has had the flu twice this past year a and B. she says it feels just like the flu again and she is frustrated that she is sick. No nausea, vomiting or diarrhea. No dizziness. No fever. States granddaughter is sick. She did get a flu shot this year. Did not get a covid booster. [facility] Medical History Heartburn Hypothyroidism (acquired) Surgical History History of esophagogastroduodenoscopy (EGD) History of knee surgery Social History (Updated 09/03/24 @ 13:10 by Lisa Mendoza CMA) Household Members: Family Housing: House Do you presently have visiting nurse or other home services: No Alcohol intake: current Alcohol intake frequency: holidays/special occasions only Patient Tobacco Use Status: Former Tobacco user e-Cigarette/Vaping Use: Never Used Second Hand Smoke Exposure: Yes Use of substances other than those prescribed or required for medical reasons: No service: No Current occupational status: employed Current occupation: [employer]- Current occupational exposures/hazards: No Cognitive needs: No Hearing needs: No Vision needs: No Questionnaire Thrive Questionnaire Date Thrive assessed: 11/20/23 I am a: Patient What is your living situation today?: I choose not to answer this question Within the past 12 months, did the food you bought not last and you didn't have the money to get more?: I choose not to answer this question Within the past 12 months, did you worry whether your food would run out before you got money to buy more?: I choose not to answer this question Do you have trouble paying for medicines?: I choose not to answer this question Do you have trouble getting transportation to medical appointments?: I choose not to answer this question Do you have trouble paying your heating and electricity bill?: I choose not to answer this question Do you have trouble taking care of your child, family member or friend?: I choose not to answer this question Do you have trouble with day-to-day activities such as bathing, preparing meals, shopping, managing finances, etc.?: I choose not to answer this question Are you currently unemployed and looking for a job?: I choose not to answer this question Are you interested in more education?: I choose not to answer this question Please select the resources that you would like help with: None Currently or been in a relationship where the following occur: I choose not to answer THRIVE Score: 0 AUDIT C Alcohol Use Questionnaire (AUDIT-C) 1. How often do you have a drink containing alcohol?: Never Total Score: 0 LYNETTE-7 AMB Questionnaire LYNETTE-7 Date LYNETTE - 7 assessed: 11/20/23 Feeling nervous, anxious, or on edge: 3 = Nearly every day Not being able to stop or control worryin = Nearly every day Worrying too much about different things: 3 = Nearly every day Trouble relaxin = Nearly every day Being so restless that it is hard to sit still: 3 = Nearly every day Becoming easily annoyed or irritable: 3 = Nearly every day Feeling afraid as if something awful might happen: 3 = Nearly every day Total LYNETTE-7 score (0-4 normal; 5-9 mild; 10-14 moderate; 15-21 severe): 21 Source: Developed by Drs. Kvng Menard, Darline Yung, Les Kenney and colleagues, with an educational ivan from [email or web address]. Physical exam (Primary Care) Vital Signs: Last Vital Signs Temp 98.2 F 09/03/24 13:11 Pulse 67 09/03/24 13:11 Resp 14 09/03/24 13:11 BP 126/84 09/03/24 13:11 Pulse Ox 97 09/03/24 13:11 Oxygen Delivery Method Room Air 09/03/24 13:11 Tobacco/Smoking Status: Tobacco use Status Tobacco use date assessed 09/03/24 09/03/24 13:11 Patient Tobacco Use Status Former Tobacco user 09/03/24 13:11 e-Cigarette/Vaping Use Never Used 09/03/24 13:11 Thrive Assessment: Date of Thrive Assessment Date Thrive assessed 11/20/23 09/03/24 13:11 Currently or been in a relationship where the following occur: I choose not to answer Const Orientation/consciousness: patient oriented x3 HENMT Ears: hearing grossly normal bilaterally and TM's normal bilaterally Face and sinus: Yes sinuses nontender Mouth: other (Mild erythema noted of the posterior oropharynx.) Neck Thyroid: Thyroid normal Lymphatic: lymphadenopathy (cervical lymphadenopathy noted) Resp Auscultation: clear to auscultation bilaterally Cardio Rate: regular rate Rhythm: regular rhythm Heart sounds: S1 normal heart sound present and S2 normal heart sound present GI Inspection: Yes normal to inspection Palpation (GI): Soft to palpation and Other GI palpation findings present (nontender, no cva tenderness) Auscultation: normoactive bowel sounds Rectal Exam - Female: deferred Skin General skin exam: no rashes or lesions noted Neuro General: patient oriented x3, gait normal and no focal motor deficits Results AMB Rapid Strep AMB Rapid Strep Negative Last Edit by Lisa Mendoza CMA on 09/03/24 15:07 Results Reviewed Results Reviewed: Laboratory Last Values Strep Scn Rapid Clinic Negative 09/03/24 15:06 Coding Level of Care Code Est Pt Level 3 (96912) Complex EM visit Add On G2211 Diagnoses Viral URI with cough J06.9 Assessment & Plan Assessment & Plan (1) Viral URI with cough: Code(s): J06.9 - Acute upper respiratory infection, unspecified Category: Medical Plan: Swab ordered. Rapid strep negative. We discussed supportive measures. I have encouraged her to rest and hydrate. Tessalon Perles and Flonase ordered to use. Follow up if no improvement or if anything worsens or changes. Patient understands and agrees with the plan. Orders: Orders AMB Rapid Strep Screen Today M79.629 - Pain in unspecified upper arm SARS-CoV2/FLU/RSV Today J06.9 - Acute upper respiratory infection, unspecified, R09.89 - Other specified symptoms and signs involving the circulatory and respiratory systems Medications: New benzonatate 100 mg PO TID PRN 30 caps 0RF cough fluticasone propionate 50 mcg/actuation (Flonase Allergy Relief) administer into each nostril 1 spray intranasal BID 16 grams 0RF
[2024-09-03 13:11] VITALS: BP 126/84; PULSE 67; RESP 14; TEMP 36.8; O2SAT 97
== END 2024-09-03 14:56 | disposition home or self-care (01) ==
LOC: HO.HMCFM 12:46
PROVIDERS: PCP Family Medicine; Visit Provider Physician Assistant
DX: M79.629 Pain in unspecified upper arm (principal); J06.9 Acute upper respiratory infection, unspecified

== ENCOUNTER 2025-03-24 07:44 | Emergency (ER) | payer OTHER, SELFPAY ==
--- NOTE | ~2025-03-24 | XR_ITS ---
EXAMINATION: XR CHEST CLINICAL INFORMATION: cough COMPARISON: 03/25/2013. TECHNIQUE: 2 views of the chest were obtained. FINDINGS: AP projection is apical lordotic. The cardiac, hilar, and mediastinal contours are normal. The lungs are clear bilaterally. There is no pneumothorax or pleural effusion. There is no focal osseous or soft tissue abnormality. XR/XR chest 2V IMPRESSION: No active pulmonary disease. Electronically signed by: Marek Daniel MD 03/24/2025 09:23 AM EDT
[2025-03-24 07:50] VITALS: BP 141/69; BP 179/100; PULSE 66; PULSE 70; RESP 18; TEMP 36.9; O2SAT 96; O2SAT 97; BMI 29.3
--- NOTE | 2025-03-24 07:55 | ECG_ITS ---
Test Reason : dizziness Blood Pressure : */* mmHG Vent. Rate : 70 BPM Atrial Rate : 70 BPM P-R Int : 152 ms QRS Dur : 92 ms QT Int : 442 ms P-R-T Axes : 10 -19 65 degrees QTcB Int : 477 ms Normal sinus rhythm Incomplete right bundle branch block Borderline ECG When compared with ECG of 29-Apr-2015 15:25, No significant change was found Referred By: Bereket Quevedo Electronically Signed By: BRICE DESOUZA MD
--- NOTE | 2025-03-24 08:37 | ED_ITS ---
HPI - General Adult General Chief complaint: Dizziness Stated complaint: DIZZY,DRY HEAVES,SYED,CHILLS X10D PER EMS Time Seen by Provider: 03/24/25 07:54 Source: patient and family (Significant other at bedside) Mode of arrival: EMS Limitations: no limitations History of Present Illness ED Provider: DANIELA Quinn HPI narrative: 64-year-old female with medical history of GERD, HLD, anxiety, depression, anemia presents to the ED for 11 days of cough, chills, body aches and dizziness when changing positions and standing. Patient states 5 days ago she began experiencing nausea and vomiting without abdominal pain. Patient states she has had a difficult time keeping down food or water. Patient denies sick contacts but does have small school aged grandchildren and works at [employer]. Denies recent travel, chest pain, SOB, difficulty breathing, MD complaint: cough, chills, body aches Related Data Previous Rx's ?Medication ?Instructions ?Recorded benzonatate 100 mg capsule 100 mg PO TID PRN cough #30 caps 09/03/24 fluticasone propionate 50 1 spray intranasal BID #16 g coy 09/03/24 mcg/actuation nasal spray,suspension (Flonase Allergy Relief) citalopram 40 mg tablet 40 mg PO DAILY #90 tabs 10/15 09/08 levothyroxine 100 mcg tablet 100 mcg PO QAM 90 days #9 0 tabs 01/29/25 cefuroxime axetil 500 mg tablet 500 mg PO BID #10 tabs 03/24/25 ondansetron HCl 4 mg tablet 4 mg PO DAILY PRN nausea a nd 03/24/25 vomiting #9 tabs Allergies Allergy/AdvReac Type Severity Reaction Status Date / Time Antihistamine Allergy Severe severe Uncoded 03/24/25 07:52 palpitations Review of Systems 2 Review of Systems: CONST: Negative for fever. POS chills, body aches HENT: Negative for neck pain/stiffness, congestion, sore throat, swelling. POS headache EYES: Negative for discharge/pain or vision changes. RESP: Negative for hemoptysis and shortness of breath. POS cough CV: Negative chest pain, difficulty breathing, palpitations. ABD: Negative pain. POS nausea, vomiting : Negative increase frequency, dysuria, blood in urine or stool. MUSC: Negative for muscle aches, edema. SKIN: Negative rash, lesions/sores. NEURO: Negative weakness. POS dizziness when changing positions Yes all other systems are reviewed and are negative [facility] Past Medical History Attestation statement: The following information was validated with the patient. Source: old records reviewed, obtained from family (Significant other at bedside) and nursing notes reviewed Medical History Heartburn Hypothyroidism (acquired) Surgical History History of esophagogastroduodenoscopy (EGD) History of knee surgery Social History Social History Household Members: Family Housing: House Do you presently have visiting nurse or other home services: No Unable to assess alcohol history related to: Unknown Alcohol intake: current Alcohol intake frequency: holidays/special occasions only Patient Tobacco Use Status: Former Tobacco user Smoked in Last 30 Days: No e-Cigarette/Vaping Use: Never Used Second Hand Smoke Exposure: Yes Use of substances other than those prescribed or required for medical reasons: Unknown Advance Directives: No Advance Directives Information Provided: Yes service: No Current occupational status: employed Current occupation: [employer]- Current occupational exposures/hazards: No Cognitive needs: No Hearing needs: No Vision needs: No Physical Exam ED Vital Signs: Vital Signs - 24 hr 03/24/25 07:50 Temperature 98.5 F Pulse Rate 66 Respiratory Rate 18 Blood Pressure 141/69 H Pulse Oximetry 97 Oxygen Delivery Method Room Air BMI result Body Mass Index 29.3 GENERAL APPEARANCE: ?AxOx4, no acute distress. HEENT: ?NC, AT. MMM. EOMI, clear conjunctiva, oropharynx clear. NECK: ?Supple without lymphadenopathy.? No stiffness or restricted ROM. HEART:? Normal rate and regular rhythm, normal S1/S2, no m/r/g LUNGS:? CTAB, moving air well. No crackles or wheezes are heard. ABDOMEN: ?Soft, nontender, nondistended, no guarding BACK: No CVAT, no obvious deformity. EXTREMITIES: ?Without cyanosis, clubbing or edema. NEUROLOGICAL: ?Grossly nonfocal. Alert and oriented, moving all 4 extremities. Skin: Warm and dry without any rash. Medications Administered Discontinued Medications Generic Name Dose Route Start Last Admin Trade Name Mike PRN Reason Stop Dose Admin Lactated Ringer's 1,000 mls @ 999 mls/hr 03/24/25 08:37 03/24/25 10:01 Lr IV 03/24/25 09:37 Infused .Q1H1M ONE Infusion Acetaminophen 1,000 mg in 100 mls @ 400 mls/hr 03/24/25 10:06 03/24/25 10:45 Ofirmev IV 03/24/25 10:20 Infused ONCE ONE Infusion Ondansetron HCl 4 mg 03/24/25 08:37 03/24/25 08:55 Ondansetron Hcl 4 Mg/2 Ml Vial IVPUSH 03/24/25 08:38 4 mg ONCE ONE Administration Medical Decision Making Medical Decision Making [facility] Narrative: 64-year-old female with medical history of GERD, HLD, anxiety, depression, anemia presents to the ED for 11 days of cough, chills, body aches and dizziness when changing positions and standing. Patient states 5 days ago she began experiencing nausea and vomiting without abdominal pain. Symptoms have persisted without improvement. VS on initial observation-BP 141/69, pulse rate is 66, respiratory rate of 18, afebrile with oral temp of 98.5?, O2 saturation 97% on room air. On physical exam lungs are clear to auscultation bilaterally, cardiac exam reveals normal rate and rhythm without murmurs/rubs/gallops, abdomen is soft, nondistended, no rigidity, no guarding, no tenderness. Extremities without edema. Labs without leukocytosis/leukopenia, H&H stable, mild transaminitis with AST of 47, ALT of 53, no electrolyte abnormality. UA reveals trace urine blood, 2+ leukocyte esterase, 3-5 urine RBCs, 6-10 urine WBCs, 3-5 squamous epithelial cells, 6-10 urine WBC. Viral serology negative. EKG reveals normal sinus rhythm with an incomplete right bundle branch block, no ST-elevation/depression, prolonged QT, patient without chest pain. CXR negative for acute cardiopulmonary disease. Patient was medicated with IV fluid, 4 mg IV Zofran, 1 g IV Tylenol with relief of dizziness and nausea. Patient was given crackers and gingerale was was able to tolerate without nausea or vomiting. Patient will be prescribed 5 day course of cefuroxime to cover for UTI and zofran for nausea. Cefuroxime was chosen as it should treat URI symptoms as well. I counseled patient to continue with oral hydration and bland diet to advance as tolerated. I counceled patient to follow up with PCP to ensure resolution of symptoms. I counseled patient on strict return precautions. Patient is in agreement with the plan. Differential Diagnosis Differential Diagnoses: The differential diagnosis associated with the presentation includes Dysrhythmia COVID Flu Pneumonia Viral illness Electrolyte abnormality UTI Admission/Observation Consideration of admission/observation: Escalation of care including admission/observation considered Lab Data MDM Lab Attestation statement: I reviewed the patient's lab results. 03/24/25 08:54 03/24/25 08:54 Labs: Lab Results 03/24/25 03/24/25 03/24/25 Range/Units 08:54 09:03 10:22 WBC 6.6 (4.8-10.8) X10*3/uL RBC 5.24 (4.20-5.50) X10*6/uL Hgb 15.4 (12.0-16.0) g/dl Hct 44.4 (37.0-47.0) % MCV 84.7 (80.0-98.0) fL MCH 29.4 (27.0-33.0) pg MCHC 34.7 (31.0-35.0) g/dl RDW 11.9 (11.0-16.0) % Plt Count 181 D (160-400) X10*3/uL MPV 8.9 L (9.4-12.3) fL Immature Gran % (Auto) 0.2 (0.0-0.4) % Neut % (Auto) 62.2 (45-73) % Lymph % (Auto) 30.3 (20-40) % Sterling % (Auto) 5.6 (2-11) % Eos % (Auto) 1.2 (0-4) % Baso % (Auto) 0.5 (0-2) % Lymph # (Auto) 2.0 (1.2-4.9) X10*3/uL Sterling # (Auto) 0.4 (0.1-1.2) X10*3/uL Eos # (Auto) 0.1 (0.0-0.4) X10*3/uL Baso # (Auto) 0.0 (0.0-0.2) X10*3/uL Abs Immat Gran (auto) 0.01 (0.00-0.03) X10*3/uL Absolute Neuts (auto) 4.1 (2.0-8.3) x10*3/uL Absolute Nucleated RBC 0.000 (0.0-0.012) X10*3/uL Nucleated RBC % (auto) 0.0 (0.0-0.2) /100WBC Smear Tech's Comments VERIFIED Sodium 143 (135-145) mmol/L Potassium 3.6 (3.3-5.1) mmol/L Chloride 108 (96-108) mmol/L Carbon Dioxide 26 (22-29) mmol/L Anion Gap 13 (12-20) BUN 9 (9-16) mg/dL Creatinine 0.65 (0.5-1.4) mg/dL Estim Creat Clear Calc 80.4 Estimated GFR > 60 Random Glucose 109 (60-115) mg/dL Calcium 9.4 (8.4-10.2) mg/dL Magnesium 2.0 (1.6-2.6) mg/dL Total Bilirubin 0.7 (0.0-1.0) mg/dL AST 47 H (5-31) U/L ALT 53 H (0-31) U/L Alkaline Phosphatase 102 (39-117) U/L Total Protein 7.6 (6.5-8.0) g/dL Albumin 4.8 (3.5-5.0) g/dL Urine Color Yellow Urine Appearance Clear Urine pH 6.5 (5.0-9.0) Ur Specific Roy 1.010 (1.005-1.025) Urine Protein Negative (Neg-Trace) mg/dL Urine Glucose (UA) Negative (Negative) mg/dL Urine Ketones 80 (Negative) mg/dL Urine Blood Trace H (Negative) Urine Nitrite Negative (Negative) Ur Leukocyte Esterase Moderate (2+) H (Negative) Urine RBC 3-5 H (0-2) /HPF Urine WBC 6-10 H (0-5) /HPF Ur Squamous Epith Cells 3-5 (0-2) /HPF Urine Bacteria None Seen (None Seen) Hyaline Casts 0-2 (0-2) /LPF COVID-19 (PADMINI) Negative (Negative) COVID-19 Clin Com See Note Influenza Type A (CELESTINO) Negative (Negative) Influenza Type B (CELESTINO) Negative (Negative) Influenza A & B Note See Note Independent Interpretation I performed an independent interpretation of an: EKG Interpretation: I independently interpreted the EKG which reveals normal sinus rhythm with an incomplete right bundle branch block, no ST-elevation/depression, prolonged QT Test Reason : dizziness Blood Pressure : */* mmHG Vent. Rate : 70 BPM Atrial Rate : 70 BPM P-R Int : 152 ms QRS Dur : 92 ms QT Int : 442 ms P-R-T Axes : 10 -19 65 degrees QTcB Int : 477 ms Normal sinus rhythm Incomplete right bundle branch block Borderline ECG When compared with ECG of 29-Apr-2015 15:25, No significant change was found Referred By: Bereket Quevedo Electronically Signed By: ARTURO DESOUZA MD Dictated By: Arturo Desouza MD Signed By: <Electronically signed by Arturo Desouza MD in OV> 03/24/25 1124 I independently interpreted the chest x-ray which was negative for acute cardiopulmonary processes, I agree with the radiologist's interpretation Radiology Impression Discussion of test interpretation with radiology: I have reviewed the radiologist's reading. Radiologist Impression: CXR FINDINGS: AP projection is apical lordotic. The cardiac, hilar, and mediastinal contours are normal. The lungs are clear bilaterally. There is no pneumothorax or pleural effusion. There is no focal osseous or soft tissue abnormality. XR/XR chest 2V IMPRESSION: No active pulmonary disease. Electronically signed by: Marek Daniel MD 03/24/2025 09:23 AM EDT Dictated By: Marek Daniel MD Signed By: <Electronically signed by Marek Daniel MD in OV> 03/24/25 0923 Independent Historian Clinical information obtained from an independent historian. History obtained from or confirmed by: Spouse (Significant other at bedside corroborating history) External Record Review External record reviewed: Inpatient record, Office record and Outpatient record Chronic Conditions Patient?s care impacted by: Hypertension and Other (Hypothyroidism) Discharge Plan Discharge Clinical Impression: URI (upper respiratory infection), Acute UTI Patient Disposition: Home, Self-Care Additional Instructions: You were evaluated in the ED today due to 11 days of cough, chills, body aches, with nausea and vomiting. Your blood work was reassuring today as there was no significant elevation/decrease in your white blood cell count, no evidence of anemia, no electrolyte abnormality. Your chest xray was normal. Your COVID/flu test was negative today. Your urine showed evidence of infection, however you are not experiencing symptoms. You are being prescribed cefuroxime which is an antibiotic that will treat upper respiratory infection and UTI, and zofran for nausea. I recommend you follow up with your PCP to ensure resolution of symptoms. Please complete entire course of antibiotics even if your symptoms resolve. Make sure to get plenty hydration with Gatorade, Powerade or Pedialyte whatever you prefer, with a bland diet that you can advanced as your symptoms improve. Additionally, to treat fever and body aches at home I encourage you to take 500 mg of Tylenol, 400 mg of ibuprofen every 6 hours. Please return to the emergency department if you experience fevers over 100.4?, worsening cough, worsening body aches, worsening nausea and vomiting, or any new/worsening/concerning symptoms. Prescriptions: New cefuroxime axetil 500 mg tablet 500 mg PO BID Qty: 10 0RF ondansetron HCl 4 mg tablet 4 mg PO DAILY PRN (Reason: nausea and vomiting) Qty: 9 0RF No Action citalopram 40 mg tablet 40 mg PO DAILY Qty: 90 2RF levothyroxine 100 mcg tablet 100 mcg PO QAM 90 Days Qty: 90 2RF benzonatate 100 mg capsule 100 mg PO TID PRN (Reason: cough) Qty: 30 0RF fluticasone propionate [Flonase Allergy Relief] 50 mcg/actuation spray,suspension 1 spray intranasal BID Qty: 16 0RF Rx Instructions: administer into each nostril Print Language: Malay
[2025-03-24] MEDS: Lactated Ringers 1,000 ML 999 ML IV (08:54)
[2025-03-24 09:03] LABS: Hematocrit 44.4 % (37.0-47.0); Hemoglobin 15.4 g/dl (12.0-16.0); Imm Gran Abs Auto 0.01 X10*3/uL (0.00-0.03); Imm Gran Pct Auto 0.2 % (0.0-0.4); Lymphocytes Absolute Auto 2.0 X10*3/uL (1.2-4.9); MANUAL DIFF FLAG SCAN; Mean Corpuscular HGB Conc 34.7 g/dl (31.0-35.0); Mean Corpuscular Hemoglobin 29.4 pg (27.0-33.0); Mean Corpuscular Volume 84.7 fL (80.0-98.0); NRBC Abs Auto 0.000 X10*3/uL (0.0-0.012); NRBC Pct Auto 0.0 /100WBC (0.0-0.2); Platelet Count 181 X10*3/uL (160-400); Red Blood Count 5.24 X10*6/uL (4.20-5.50); SCAN SMEAR FLAG 1; White Blood Count 6.6 X10*3/uL (4.8-10.8)
[2025-03-24 09:18] LABS: Alanine Aminotransferase 53 U/L (0-31); Albumin Level 4.8 g/dL (3.5-5.0); Alkaline Phosphatase 102 U/L (39-117); Anion Gap 13 (12-20); Aspartate Amino Transferase 47 U/L (5-31); Blood Urea Nitrogen 9 mg/dL (9-16); Calcium 9.4 mg/dL (8.4-10.2); Carbon Dioxide 26 mmol/L (22-29); Chloride 108 mmol/L (96-108); Creatinine Clr Calc Pharmacy 80.4; Estimated Glomerular Filt Rate > 60; Magnesium 2.0 mg/dL (1.6-2.6); Potassium 3.6 mmol/L (3.3-5.1); Sodium 143 mmol/L (135-145); Total Protein 7.6 g/dL (6.5-8.0)
[2025-03-24 09:27] LABS: COVID-19 Test Negative (Negative); IDNOW Serial# 55D5AD1C; IDNOW Serial# 58CA691E; Influenza B2 Negative (Negative)
[2025-03-24 10:29] LABS: Appearance Urine Clear; Glucose Urine UA Negative (Negative); PH 6.5 (5.0-9.0); Specific Gravity - Urine 1.010 (1.005-1.025); UMIC TRIGGER UACC YES
[2025-03-24 10:47] LABS: UACC Culture Trigger YES
[2025-03-24 12:49] VITALS: BP 141/69; PULSE 66; RESP 18; TEMP 36.9; O2SAT 97
== END 2025-03-24 12:50 | disposition home or self-care (01) ==
PROVIDERS: Emergency Provider Emergency Medicine; PCP Family Medicine
DX: J06.9 Acute upper respiratory infection, unspecified (principal); N39.0 Urinary tract infection, site not specified; D64.9 Anemia, unspecified; Z87.19 Personal history of other diseases of the digestive system; Z79.899 Other long term (current) drug therapy
CPT/HCPCS: 71046; 80053; 81001; 83735; 85025; 87086; 87502; 87635; 93005; 96361; 96365; 96375; 99284; 99285; J0131; J2405; J7120

== ENCOUNTER → 2025-03-24 07:55 | Outpatient (BNV) | payer OTHER, SELFPAY | PROVIDERS: Emergency Provider Emergency Medicine; PCP Family Medicine; Visit Provider Internal Medicine Cardiovascular Disease | DX: I45.10 Unspecified right bundle-branch block (principal) | CPT/HCPCS: 93010 ==

== ENCOUNTER → 2025-03-24 08:37 | Outpatient (BNV) | payer OTHER, SELFPAY | PROVIDERS: Emergency Provider Emergency Medicine; PCP Family Medicine; Visit Provider Radiology Diagnostic Radiology | DX: R05.9 Cough, unspecified (principal) | CPT/HCPCS: 71046 ==

== ENCOUNTER 2025-06-16 09:53 | Outpatient (REF) | payer OTHER, SELFPAY ==
--- NOTE | ~2025-06-16 | XR_ITS ---
EXAMINATION: XR CHEST CLINICAL INFORMATION: R05.9 - Cough, unspecified COMPARISON: 03/24/2025. TECHNIQUE: 2 views of the chest were obtained. FINDINGS: The cardiac, hilar, and mediastinal contours are normal. Aorta is mildly tortuous. The lungs are clear bilaterally. There is no pneumothorax or pleural effusion. There is no focal osseous or soft tissue abnormality. XR/XR chest 2V IMPRESSION: No active pulmonary disease. Electronically signed by: Marek Daniel MD 06/16/2025 01:53 PM EST
[2025-06-16 16:14] LABS: MANUAL DIFF FLAG NO
[2025-06-16 16:37] LABS: Hematocrit 45.3 % (37.0-47.0); Hemoglobin 14.8 g/dl (12.0-16.0); Imm Gran Abs Auto 0.02 X10*3/uL (0.00-0.03); Imm Gran Pct Auto 0.3 % (0.0-0.4); Lymphocytes Absolute Auto 2.5 X10*3/uL (1.2-4.9); Mean Corpuscular HGB Conc 32.7 g/dl (31.0-35.0); Mean Corpuscular Hemoglobin 29.1 pg (27.0-33.0); Mean Corpuscular Volume 89.0 fL (80.0-98.0); NRBC Abs Auto 0.000 X10*3/uL (0.0-0.012); NRBC Pct Auto 0.0 /100WBC (0.0-0.2); Platelet Count 284 X10*3/uL (160-400); Red Blood Count 5.09 X10*6/uL (4.20-5.50); White Blood Count 7.4 X10*3/uL (4.8-10.8)
[2025-06-16 17:31] LABS: Alanine Aminotransferase 42 U/L (0-31); Albumin Level 4.9 g/dL (3.5-5.0); Alkaline Phosphatase 117 U/L (39-117); Anion Gap 12 (12-20); Aspartate Amino Transferase 39 U/L (5-31); Blood Urea Nitrogen 11 mg/dL (9-16); Calcium 10.1 mg/dL (8.4-10.2); Carbon Dioxide 27 mmol/L (22-29); Chloride 106 mmol/L (96-108); Estimated Glomerular Filt Rate > 60; Magnesium 2.1 mg/dL (1.6-2.6); Potassium 3.8 mmol/L (3.3-5.1); Sodium 141 mmol/L (135-145); Total Protein 8.0 g/dL (6.5-8.0)
[2025-06-16 17:45] LABS: Free T4 (Free Thyroxine) 1.22 ng/dL (0.71-1.85); Thyroid Stimulating Hormone 2.50 uIU/mL (0.32-4.0)
[2025-06-16 18:04] LABS: Folate 9.2 ng/mL (> or = 4.0); Vitamin B12 408 pg/mL (200-900)
[2025-06-17 05:20] LABS: HIV Num 1 0.09 S/CO (0.00-0.99)
[2025-06-17 05:35] LABS: Syphilis Screen Nonreactive (Nonreactive)
== END 2025-06-16 09:54 | disposition home or self-care (01) ==
LOC: HO.HMGCX 09:53
PROVIDERS: PCP Family Medicine; Visit Provider Family Medicine
DX: R25.1 Tremor, unspecified (principal); E03.9 Hypothyroidism, unspecified; R53.83 Other fatigue; G47.10 Hypersomnia, unspecified; Z77.120 Contact with and (suspected) exposure to mold (toxic); Z11.3 Encounter for screening for infections with a predominantly sexual mode of transmission; R05.9 Cough, unspecified; R74.8 Abnormal levels of other serum enzymes; E53.8 Deficiency of other specified B group vitamins; Z00.00 Encounter for general adult medical examination without abnormal findings; Z91.148 Patient's other noncompliance with medication regimen for other reason
CPT/HCPCS: 36415; 71046; 80053; 82607; 82746; 83735; 84439; 84443; 84480; 85025; 85652; 86141; 86780; 87389

== ENCOUNTER 2025-06-16 09:53 | Outpatient (AMB) | payer OTHER, SELFPAY ==
--- NOTE | 2025-06-16 10:15 | MHC.PC.OV ---
Vital Signs 06/16/25 10:20 Height 5 ft 2 in Weight 169 lb BMI 30.9 BP 122/84 Blood Pressure Location Rt brachial Pulse 67 Pulse Source Pulse Oximeter Pulse Oximetry (%) 97 Oxygen Delivery Method Room Air Handedness Left Intake Visit Reasons: Hand Tremors /mold issue / f/u hypothyroidism Intake Note: Loli is a 64 year old left hand dominant female who presents today for a follow up of her hypothyroidism. Patient reports she has been doing well since the medication change. Allergies Antihistamine Allergy (Severe, Uncoded 03/24/25 07:52) severe palpitations Medication List - Last Reconciled 06/16/25 by Ceasar Odell MD benzonatate 100 mg PO TID PRN cefuroxime axetil 500 mg PO BID citalopram 40 mg PO DAILY fluticasone propionate 50 mcg/actuation (Flonase Allergy Relief) 1 spray intranasal BID levothyroxine 100 mcg PO QAM 90 days ondansetron HCl 4 mg PO DAILY PRN Tobacco use date assessed: 09/03/24 Dental Screening Dental Screen Date: 11/20/23 HPI Hand Tremors /mold issue / f/u hypothyroidism HPI Details 64 y/o female presents to f/u chronic conditions, hypothyroidism. Labs drawn 03/24/25. Reviewed labs with pt. Elevated liver enzymes - AST 47, ALT 53. Blood in urine. No recent thyroid labs to review. Reports complaints of tremors, fatigue. Complaints of ?mold exposure. Notes cough. [facility] Medical History Heartburn Hypothyroidism (acquired) Surgical History History of esophagogastroduodenoscopy (EGD) History of knee surgery Social History Household Members: Family Housing: House Do you presently have visiting nurse or other home services: No Alcohol intake: current Alcohol intake frequency: holidays/special occasions only Patient Tobacco Use Status: Former Tobacco user e-Cigarette/Vaping Use: Never Used Second Hand Smoke Exposure: Yes service: No Current occupational status: employed Current occupation: [employer]- Current occupational exposures/hazards: No Cognitive needs: No Hearing needs: No Vision needs: No Questionnaire PHQ-9 Over the last 2 weeks, how often have you been bothered by any of the following problems? 1. Little interest or pleasure in doing things: nearly every day 2. Feeling down, depressed, or hopeless: not at all 3. Trouble falling or staying asleep, or sleeping too much: nearly every day 4. Feeling tired or having little energy: nearly every day 5. Poor appetite or overeating: nearly every day 6. Feeling bad about yourself - or that you are a failure or have let yourself or your family down: not at all 7. Trouble concentrating on things, such as reading the newspaper or watching television: nearly every day 8. Moving or speaking so slowly that other people could have noticed. Or the opposite - being so fidgety or restless that you have been moving around a lot more than usual: not at all 9. Thoughts that you would be better off or of hurting yourself in some way: not at all Total score: 15 Source: Developed by Drs. Kvng Menard, Darline Yung, Les Kenney and colleagues, with an educational ivan from test company. Thrive Questionnaire Date Thrive assessed: 09/03/24 I am a: Patient What is your living situation today?: I choose not to answer this question Within the past 12 months, did the food you bought not last and you didn't have the money to get more?: I choose not to answer this question Within the past 12 months, did you worry whether your food would run out before you got money to buy more?: I choose not to answer this question Do you have trouble paying for medicines?: I choose not to answer this question Do you have trouble getting transportation to medical appointments?: I choose not to answer this question Do you have trouble paying your heating and electricity bill?: I choose not to answer this question Do you have trouble taking care of your child, family member or friend?: I choose not to answer this question Do you have trouble with day-to-day activities such as bathing, preparing meals, shopping, managing finances, etc.?: I choose not to answer this question Are you currently unemployed and looking for a job?: I choose not to answer this question Are you interested in more education?: I choose not to answer this question Currently or been in a relationship where the following occur: I choose not to answer THRIVE Score: 0 LYNETTE-7 AMB Questionnaire LYNETTE-7 Date LYNETTE - 7 assessed: 11/20/23 Source: Developed by Drs. Kvng Menard, Darline Yung, Les Kenney and colleagues, with an educational ivan from test company. Review of Systems Const Denies chills, Reports fatigue, Denies fever(s), Denies headache(s) and Denies weakness ENT Denies dizziness and Denies headache(s) Card Denies chest pain, Denies lightheadedness, Denies dyspnea and Denies other (Palpitations) Resp Denies cough, Denies dyspnea, Denies wheezing and Denies other ( shortness of breath) Musc Denies numbness and Denies tingling Neuro Denies dizziness, Denies headache(s), Denies numbness, Denies tingling, Denies paresthesias and Denies weakness Psych Denies anxiety and Denies depression Endo Reports fatigue Aller/Immun Denies wheezing Physical exam (Primary Care) Vital Signs: Last Vital Signs Pulse 67 06/16/25 10:20 BP 122/84 06/16/25 10:20 Pulse Ox 97 06/16/25 10:20 Oxygen Delivery Method Room Air 06/16/25 10:20 BMI result Body Mass Index 30.9 Tobacco/Smoking Status: Tobacco use Status Tobacco use date assessed 09/03/24 06/16/25 10:17 Patient Tobacco Use Status Former Tobacco user 06/16/25 10:17 e-Cigarette/Vaping Use Never Used 06/16/25 10:17 PHQ-9: PHQ-9 Score PHQ-9: Total score 15 06/16/25 10:43 Thrive Assessment: Date of Thrive Assessment Date Thrive assessed 09/03/24 06/16/25 10:17 Currently or been in a relationship where the following occur: I choose not to answer Const General: no acute distress and well developed Nutritional Appearance: well nourished Orientation/consciousness: patient oriented x3 HENMT Head: Yes normocephalic and Yes atraumatic Eyes General: appearance normal, both eyes and all related structures Pupils: Equal, round and reactive pupils present EOM: EOMs intact bilaterally Resp Other: Faint wheeze at the left lower lung field which cleared with deep breath and cough. Effort & Inspection: normal respiratory effort Auscultation: clear to auscultation bilaterally Cardio Rate: regular rate Rhythm: regular rhythm Heart sounds: S1 normal heart sound present, S2 normal heart sound present, no gallops, no murmurs and no rubs Neuro General: patient oriented x3 and gait normal Cranial nerves: Yes CN's II-XII intact bilaterally and Yes Equal, round and reactive pupils present Motor exam (neuro): Tremors during motor activity present Psych Affect: normal affect Coding Level of Care Code Est Pt Level 5 (83892) Diagnoses Hypothyroidism (acquired) E03.9 Elevated liver enzymes R74.8 Tremor R25.1 Fatigue R53.83 Hypersomnia G47.10 Mold exposure Z77.120 Cough R05.9 Assessment & Plan Assessment & Plan (1) Hypothyroidism (acquired): Code(s): E03.9 - Hypothyroidism, unspecified Category: Medical Plan: Patient is thyroid medication was adjusted over a year ago. She did not follow-up as requested. Rechecking thyroid hormone levels. (2) Elevated liver enzymes: Code(s): R74.8 - Abnormal levels of other serum enzymes Category: Medical Plan: History of elevated liver enzymes. Rechecking liver enzymes (3) Tremor: Code(s): R25.1 - Tremor, unspecified Category: Medical Plan: New tremor at left hand. No weakness at left hand No other focal neurologic deficits Will check labs. Will follow-up with patient to determine next steps which may include imaging or referral to Neurology As above, she has not had follow-up for thyroid hormone levels which may cause neurologic deficits though less likely unilaterally. (4) Fatigue: Code(s): R53.83 - Other fatigue Category: Medical Plan: Significant fatigue and patient says she is getting at least 8 hours of sleep per night. She awakens feeling unrested. Chronic daytime sleepiness Denies that she might have sleep apnea but I think she should have this ruled out. Referring her to sleep medicine for hypersomnia and fatigue. (5) Hypersomnia: Code(s): G47.10 - Hypersomnia, unspecified Category: Medical (6) Mold exposure: Code(s): Z77.120 - Contact with and (suspected) exposure to mold (toxic) Category: Social Hx (7) Cough: Code(s): R05.9 - Cough, unspecified Category: Medical Plan Patient notes that her basement has been found to be full of mold. She is concerned that the mold is the underlying cause of many of her problems. Recommended they avoid the basement and use hep filtration. They are in the process of removal. Discussed with patient that the symptoms she is describing, besides the left hand tremor are rather nonspecific symptoms and can be caused by many underlying issues. Primary among these are her hypothyroidism. Will follow-up on thyroid hormone levels and her other lab work. Also investigating possible sleep apnea as she is not feeling rested despite 8 hours of sleep. She will return in 3 weeks to follow-up tremor, fatigue, lab work and chest x-ray for cough. Orders: Orders Comprehensive Met. Panel 06/16/25 R25.1 - Tremor, unspecified Free T4 (Free Thyroxine) 06/16/25 E03.9 - Hypothyroidism, unspecified Syphilis Screen 06/16/25 E03.9 - Hypothyroidism, unspecified, Z11.3 - Encounter for screening for infections with a predominantly sexual mode of transmission HIV Ab/Ag 06/16/25 E03.9 - Hypothyroidism, unspecified, Z11.3 - Encounter for screening for infections with a predominantly sexual mode of transmission XR chest 2V 06/16/25 R05.9 - Cough, unspecified Complete Blood Count Auto Diff 06/16/25 R25.1 - Tremor, unspecified, Z00.00 - Encounter for general adult medical examination without abnormal findings Erythrocyte Sedimentation Rate 06/16/25 R25.1 - Tremor, unspecified CRP High Sensitivity 06/16/25 R25.1 - Tremor, unspecified Vitamin B12 and Folate 06/16/25 E53.8 - Deficiency of other specified B group vitamins, R25.1 - Tremor, unspecified Magnesium 06/16/25 R25.1 - Tremor, unspecified Thyroid Stimulating Hormone 06/16/25 E03.9 - Hypothyroidism, unspecified Triiodothyronine T3 Total 06/16/25 E03.9 - Hypothyroidism, unspecified Referrals Sleep Medicine Referral G47.10 - Hypersomnia, unspecified, R53.83 - Other fatigue
[2025-06-16 10:20] VITALS: BP 122/84; PULSE 67; O2SAT 97; BMI 30.9
--- OUTSIDE RECORDS SUMMARY | 2025-06-16 10:38 | XMS_ITS | Patient Health Record ---
Author Organization [facility] Address [address] [place] [id number] Care Team Providers Care Property Administrator Name Role Phone Lyric(inactive) Rosario KULKARNI Primary Care Provider U Kvng Garcia Unavailable [phone] Reason For Referral No Information Medications Medication SIG (Take, Route, Frequency, Duration) Notes Start Date End Date Status Levothyroxine Sodium 75 MCG Tablet 1 tablet on an empty stomach in the morning Orally Once a day Active Gemfibrozil 600 MG Tablet 1 tablet Orall y once a day Active Social History Tobacco Use: Social History Observation Description Date Details (start date - stop date) Never Smoker NA - NA Social History Drugs/Alcohol: Social Info Question Answer Notes Alcohol Screen Did you have a drink containing alcohol in the past year? 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 Section Notes: Nonsmoker; no sig alcohol Problems Problem Type SNOMED Code ICD Code Onset Dates Problem Status W/U Status Risk Notes Problem Screening for malignant neoplasm of colon (345509757) Encounter for screening for malignant neoplasm of colon (Z12.11) Active confirmed Problem Elevated liver enzymes level (520365796) Elevated liver enzymes (R74.8) Active confirmed Plan Of Treatment Pending Test Test Name Order Date IRON + IBC (FE) 05/01/2017 FERRITIN 05/01/2017 CBC w DIFF 05/01/2017 PROTHROMBIN TIME (PT, INR) 05/01/2017 HEPATITIS A,B,C PROFILE 05/01/2017 [id number] (A1A) 05/01/2017 MITOCHONDRIAL AB 05/01/2017 SMOOTH MUSCLE ANTIBODIES 05/01/2017 FLUOR. ANTINUCLEAR AB SCREEN (GRIFFIN) 04/17 Future Test Test Name Order Date COLONOSCOPY 04/17/2017 Insurance Providers Payer Name Payer Address Payer Phone Subscriber Number Group Number Insured Name Patient Relationship to Insured Coverage Start Date Coverage End Date [facility] [address] [place] [address] [id number] CINTHIA CHRIS Self - patient is the insured Medical (General) History Medical History History ICD Code Denies [place],DM,CVA,Lung disease,renal dise ase Hypothyroidism Hypertriglyceridemia EGD in 2007--Gastritis with H.pylori, mi nimal Surgical History Surgery Date(Month/Year) Lower back for a disc Wrist surgery on the right Tubal ligation
== END 2025-06-16 11:09 | disposition home or self-care (01) ==
LOC: HO.HMCFM 09:54
PROVIDERS: PCP Family Medicine; Visit Provider Family Medicine
DX: E03.9 Hypothyroidism, unspecified (principal); R25.1 Tremor, unspecified; R53.83 Other fatigue; G47.10 Hypersomnia, unspecified; R05.9 Cough, unspecified; R74.01 Elevation of levels of liver transaminase levels; Z77.120 Contact with and (suspected) exposure to mold (toxic)

== ENCOUNTER → 2025-06-16 13:38 | Outpatient (BNV) | payer OTHER, SELFPAY | PROVIDERS: PCP Family Medicine; Visit Provider Radiology Diagnostic Radiology | DX: R05.9 Cough, unspecified (principal) | CPT/HCPCS: 71046 ==